=== PATIENT | female | born 1945 | race Caucasian/White ===

== ENCOUNTER 2018-07-21 08:02 | Day surgery (SDC) | payer MEDICARE, OTHER ==
[~2018-07-21 08:02] MED LIST: Cefuroxime 10 MG/ML SYRINGE EYERT SCH; Lidocaine 1% PF 2 ML SDV INJECT SCH; Pilocarpine 4% Ophth Soln 15 ML Bot EYERT SCH
[2018-07-21] MEDS: Polymyxin B/Trimethoprim 10 ML Bottle EYERT SCH ×3 (08:16→09:59)
[2018-07-21] MEDS: Brimonidine 0.2% Ophth Soln 5 ML Bottle EYERT SCH ×3 (08:19→09:59)
[2018-07-21] MEDS: Phenylephrine 2.5% Ophth Soln 2 ML Bot EYERT SCH ×5 (08:22→09:38)
[2018-07-21] MEDS: Tropicamide 1% Ophth Soln 15 ML Bottle EYERT SCH ×4 (08:25→09:05)
--- NOTE | 2018-07-21 08:45 | PCM.PREANE ---
Preanesthetic Assessment - Procedure Proposed Procedure: cataract right eye - Anesthesia/Transfusion/Family Hx Anesthesia History: Prior Anesthesia Without Reaction Family History of Anesthesia Reaction: No Transfusion History: Prior Transfusion Without Reaction - Review of Systems General: No Symptoms Pulmonary: No Symptoms Cardiovascular: No Symptoms Gastrointestinal: No Symptoms Neurological: No Symptoms Other: Reports: Diabetes, Thyroid Problems - Physical Assessment NPO Status Date: 07/20/18 NPO Status Time: 22:00 O2 Sat by Pulse Oximetry: 97 Respiratory Rate: 16 Vital Signs: Last Vital Signs Temp 98.8 F 07/21/18 08:05 Pulse 65 07/21/18 08:05 Resp 16 07/21/18 08:05 BP 142/73 H 07/21/18 08:05 Pulse Ox 97 07/21/18 08:05 Height: 5 ft 5 in Weight: 81.647 kg ASA Class: 3 Mental Status: Alert & Oriented x3 Airway Class: Mallampati = 1 Dentition: Reports: Normal Dentition Thyro-Mental Finger Breadths: 3 Mouth Opening Finger Breadths: 3 ROM/Head Extension: Full Lungs: Clear to Auscultation, Normal Respiratory Effort Cardiovascular: Regular Rate, Regular Rhythm - Allergies Allergies/Adverse Reactions: Allergies Allergy/AdvReac Type Severity Reaction Status Date / Time No Known Allergies Allergy Verified 07/20/18 14:33 - Blood Blood Available: No - Anesthesia Plan Beta Laly: Metoprolol Med Last Dose Date: 07/21/18 Med Last Dose Time: 06:00 - Acknowledgements Anesthesia Type Planned: MAC Pt an Appropriate Candidate for the Planned Anesthesia: Yes Alternatives and Risks of Anesthesia Discussed w Pt/Guardian: Yes Pt/Guardian Understands and Agrees with Anesthesia Plan: Yes PreAnesthesia Questionnaire Cardiovascular History: Reports: Heart Valve Replacement, High Cholesterol, Hypertension Respiratory History: Reports: None Gastrointestinal History: Reports: GERD Musculoskeletal History: Reports: Arthritis Endocrine/Metabolic History: Reports: Hypothyroidism - Past Surgical History Cardiovascular Surgical History: Reports: Valve Replacement Musculoskeletal Surgical History: Reports: Carpal Tunnel, Knee Replacement - SUBSTANCE USE Smoking Status *Q: Former Smoker Tobacco Use Within Last Twelve Months: No Second Hand Smoke Exposure: No Days Per Week of Alcohol Use: 0 Recreational Drug Use History: No - HOME MEDS Home Medications: Home Meds Aspirin [Ecotrin] 81 mg PO DAILY 07/20/18 [History] Cholecalciferol (Vitamin D3) [Vitamin D3] 1,000 unit PO DAILY 07/20/18 [History] Levothyroxine Sodium 88 mcg PO DAILY 07/20/18 [History] Linagliptin [Tradjenta] 5 mg PO DAILY 07/20/18 [History] Metoprolol Succinate 25 mg PO DAILY 07/20/18 [History] Vitamin E 400 mg PO DAILY 07/20/18 [History] amLODIPine Besylate [Amlodipine Besylate] 5 mg PO DAILY 07/20/18 [History] atorvaSTATin Calcium [Atorvastatin Calcium] 80 mg PO DAILY 07/20/18 [History] - CURRENT (IN HOUSE) MEDS Current Meds: Current Medications Brimonidine Tartrate (Alphagan 0.2% Oph Soln) 0 ml EYERT ASDIRECTED SANA Stop: 07/21/18 18:00 Last Admin: 07/21/18 08:19 Dose: 1 drop Cefuroxime Sodium (Zinacef) 0 mg EYERT ASDIRECTED SANA Stop: 07/21/18 18:00 Lidocaine HCl (Xylocaine-Mpf 1%) 0 ml INJECT ASDIRECTED SANA Stop: 07/21/18 18:00 Phenylephrine HCl (Arnulfo-Synephrine 2.5% Ophth Soln) 0 ml EYERT ASDIRECTED SANA Stop: 07/21/18 18:00 Last Admin: 07/21/18 08:30 Dose: 1 drop Pilocarpine HCl (Pilocar 4% Ophth Soln) 0 ml EYERT ASDIRECTED SANA Stop: 07/21/18 18:00 Polymyxin/Trimethoprim Sulfate (Polytrim Ophth Soln) 0 ml EYERT ASDIRECTED SANA Stop: 07/21/18 18:00 Last Admin: 07/21/18 08:16 Dose: 1 drop Tetracaine HCl (Tetracaine 0.5% Steri-Unit Marisol) 0 ml EYERT ASDIRECTED SANA Stop: 07/21/18 18:00 Tropicamide (Mydriacyl 1% Oph Soln) 0 ml EYERT ASDIRECTED SANA Stop: 07/21/18 18:00 Last Admin: 07/21/18 08:35 Dose: 1 drop
[2018-07-21] MEDS: Tetracaine HCl/PF 0.5% 4 ML Bottle EYERT SCH ×4 (09:19→09:48)
--- NOTE | 2018-07-21 10:05 | PCM48HPAN ---
Post Anesthesia Note - EVALUATION WITHIN 48HRS OF ANESTHETIC Vital Signs in Normal Range: Yes Patient Participated in Evaluation: Yes Respiratory Function Stable: Yes Airway Patent: Yes Cardiovascular Function Stable: Yes Hydration Status Stable: Yes Pain Control Satisfactory: Yes Nausea and Vomiting Control Satisfactory: Yes Mental Status Recovered: Yes Resp Rate: 16
== END 2018-07-21 10:13 | disposition home or self-care (01) ==
LOC: JD.SDS 08:02
PROVIDERS: ATTEND Ophthalmology
DX: E11.36 Type 2 diabetes mellitus with diabetic cataract (principal); H25.813 Combined forms of age-related cataract, bilateral; H43.813 Vitreous degeneration, bilateral; H16.223 Keratoconjunctivitis sicca, not specified as Sjogren's, bilateral; H02.831 Dermatochalasis of right upper eyelid; H02.834 Dermatochalasis of left upper eyelid; I11.9 Hypertensive heart disease without heart failure; E78.00 Pure hypercholesterolemia, unspecified; E03.9 Hypothyroidism, unspecified; Z87.891 Personal history of nicotine dependence; Z79.82 Long term (current) use of aspirin; Z79.84 Long term (current) use of oral hypoglycemic drugs; Z79.899 Other long term (current) drug therapy
CPT/HCPCS: 66984; A9270; C1780; J0697; J2001

== ENCOUNTER 2018-09-15 07:24 | Day surgery (SDC) | payer MEDICARE, OTHER ==
[~2018-09-15 07:24] MED LIST changes: +Cefuroxime 10 MG/ML SYRINGE EYELF SCH; -Cefuroxime 10 MG/ML SYRINGE EYERT SCH; -Lidocaine 1% PF 2 ML SDV INJECT SCH; -Pilocarpine 4% Ophth Soln 15 ML Bot EYERT SCH
[2018-09-15] MEDS: Polymyxin B/Trimethoprim 10 ML Bottle EYELF SCH ×4 (07:37→09:29)
[2018-09-15] MEDS: Brimonidine 0.2% Ophth Soln 5 ML Bottle EYELF SCH ×4 (07:42→09:29)
[2018-09-15] MEDS: Phenylephrine 2.5% Ophth Soln 2 ML Bot EYELF SCH ×5 (07:48→09:12)
--- NOTE | 2018-09-15 07:48 | PCM.PREANE ---
Preanesthetic Assessment - Anesthesia/Transfusion/Family Hx Anesthesia History: Prior Anesthesia Without Reaction Family History of Anesthesia Reaction: No Transfusion History: Prior Transfusion Without Reaction - Review of Systems General: No Symptoms Pulmonary: No Symptoms Cardiovascular: No Symptoms Gastrointestinal: No Symptoms Neurological: No Symptoms Other: Reports: None - Physical Assessment NPO Status Date: 09/14/18 NPO Status Time: 22:00 Pulse: 64 O2 Sat by Pulse Oximetry: 93 Respiratory Rate: 16 Blood Pressure: 155/72 Temperature: 97.6 C ASA Class: 2 Mental Status: Alert & Oriented x3 Airway Class: Mallampati = 1 Dentition: Reports: Normal Dentition Thyro-Mental Finger Breadths: 3 Mouth Opening Finger Breadths: 3 ROM/Head Extension: Full Lungs: Clear to Auscultation, Normal Respiratory Effort Cardiovascular: Regular Rate, Regular Rhythm, Murmurs - Allergies Allergies/Adverse Reactions: Allergies Allergy/AdvReac Type Severity Reaction Status Date / Time No Known Allergies Allergy Verified 09/14/18 14:55 - Anesthesia Plan Beta Laly: Metoprolol Med Last Dose Date: 09/15/18 Med Last Dose Time: 05:00 - Acknowledgements Anesthesia Type Planned: MAC Pt an Appropriate Candidate for the Planned Anesthesia: Yes Alternatives and Risks of Anesthesia Discussed w Pt/Guardian: Yes Pt/Guardian Understands and Agrees with Anesthesia Plan: Yes PreAnesthesia Questionnaire HEENT History: Reports: Cataract Cardiovascular History: Reports: Heart Valve Replacement (aortic vavle), High Cholesterol, Hypertension Respiratory History: Reports: None Gastrointestinal History: Reports: GERD Musculoskeletal History: Reports: Arthritis Endocrine/Metabolic History: Reports: Diabetes, Type II (pt does not check BS regularly), Hypothyroidism - Past Surgical History HEENT Surgical History: Reports: Tonsillectomy Cardiovascular Surgical History: Reports: Valve Replacement Female Surgical History: Reports: Tubal Ligation Musculoskeletal Surgical History: Reports: Carpal Tunnel, Knee Replacement ((L)) - SUBSTANCE USE Smoking Status *Q: Never Smoker - HOME MEDS Home Medications: Home Meds Aspirin [Ecotrin] 81 mg PO DAILY 07/20/18 [History] Cholecalciferol (Vitamin D3) [Vitamin D3] 1,000 unit PO DAILY 07/20/18 [History] Levothyroxine Sodium 88 mcg PO DAILY 07/20/18 [History] Linagliptin [Tradjenta] 5 mg PO DAILY 07/20/18 [History] Metoprolol Succinate 25 mg PO DAILY 07/20/18 [History] Vitamin E 400 mg PO DAILY 07/20/18 [History] amLODIPine Besylate [Amlodipine Besylate] 5 mg PO DAILY 07/20/18 [History] atorvaSTATin Calcium [Atorvastatin Calcium] 80 mg PO DAILY 07/20/18 [History] - CURRENT (IN HOUSE) MEDS Current Meds: Current Medications Brimonidine Tartrate (Alphagan 0.2% Ophth Soln) 0 ml EYELF ASDIRECTED SANA Stop: 09/15/18 18:00 Cefuroxime Sodium (Zinacef) 0 mg EYELF ASDIRECTED SANA Stop: 09/15/18 18:00 Lidocaine HCl (Xylocaine-Mpf 1%) 0 ml INJECT ASDIRECTED SANA Stop: 09/15/18 18:00 Phenylephrine HCl (Arnulfo-Synephrine 2.5% Ophth Soln) 0 ml EYELF ASDIRECTED SANA Stop: 09/15/18 18:00 Pilocarpine HCl (Pilocar 4% Ophth Soln) 0 ml EYELF ASDIRECTED SANA Stop: 09/15/18 18:00 Polymyxin/Trimethoprim Sulfate (Polytrim Ophth Soln) 0 ml EYELF ASDIRECTED SANA Stop: 09/15/18 18:00 Last Admin: 09/15/18 07:37 Dose: 1 drop Tetracaine HCl (Tetracaine 0.5% Steri-Unit Marisol) 0 ml EYELF ASDIRECTED SANA Stop: 09/15/18 18:00 Tropicamide (Mydriacyl 1% Ophth Soln) 0 ml EYELF ASDIRECTED SANA Stop: 09/18/18 18:00
[2018-09-15] MEDS: Tropicamide 1% Ophth Soln 15 ML Bottle EYELF SCH ×4 (07:58→08:42)
[2018-09-15] MEDS: Lidocaine 1% PF 2 ML SDV INJECT SCH ×2 (08:37→09:18)
[2018-09-15] MEDS: Tetracaine HCl/PF 0.5% 4 ML Bottle EYELF SCH ×3 (08:37→09:19)
[2018-09-15] MEDS: Pilocarpine 4% Ophth Soln 15 ML Bot EYELF SCH ×2 (08:38→09:29)
--- NOTE | 2018-09-15 09:41 | PCM48HPAN ---
Post Anesthesia Note - EVALUATION WITHIN 48HRS OF ANESTHETIC Vital Signs in Normal Range: Yes Patient Participated in Evaluation: Yes Respiratory Function Stable: Yes Airway Patent: Yes Cardiovascular Function Stable: Yes Hydration Status Stable: Yes Pain Control Satisfactory: Yes Nausea and Vomiting Control Satisfactory: Yes Mental Status Recovered: Yes
== END 2018-09-15 09:41 | disposition home or self-care (01) ==
LOC: JD.SDS 07:24
PROVIDERS: ATTEND Ophthalmology
DX: H25.812 Combined forms of age-related cataract, left eye (principal); E11.9 Type 2 diabetes mellitus without complications; I10 Essential (primary) hypertension; E78.00 Pure hypercholesterolemia, unspecified; Z96.1 Presence of intraocular lens; Z79.82 Long term (current) use of aspirin; Z79.84 Long term (current) use of oral hypoglycemic drugs; Z79.899 Other long term (current) drug therapy
CPT/HCPCS: 66984; A9270; C1780; J0697; J2001

== ENCOUNTER 2019-04-26 14:59 | Inpatient (IN) | payer MEDICARE, OTHER ==
[2019-05-03] MEDS ORDERED: Lidocaine 1%/Sod Bicarbonate in NS 8.4% 1 ML Syringe IDERM PRN (00:01)
[2019-05-03] MEDS ORDERED: Lactated Ringers 1,000 ML IV SCH (00:01)
[2019-05-03] MEDS ORDERED: Sodium Chloride 0.9% 10 ML Syringe FLUSH PRN (00:01)
[2019-05-03] MEDS ORDERED: Acetaminophen 325 MG Tab PO SCH (06:00)
[2019-05-03] MEDS ORDERED: Pregabalin 25 MG Cap PO SCH (06:00)
[2019-05-03] MEDS ORDERED: oxyCODONE ER 10 MG TAB.ER PO SCH (06:00)
[2019-05-03] MEDS ORDERED: Naloxone 0.4 MG/ML SDV IVPUSH PRN (07:10)
[2019-05-03] MEDS ORDERED: Ondansetron 4 MG/2 ML SDV IVPUSH PRN (07:10)
[2019-05-03] MEDS ORDERED: Magnesium Hydroxide 400 MG/5 ML Susp 30 ML Cup PO PRN (07:10)
[2019-05-03] MEDS ORDERED: Bisacodyl 5 MG Tab PO PRN (07:10)
[2019-05-03] MEDS ORDERED: Morphine 2 MG/ML Syringe IVPUSH PRN (07:10)
[2019-05-03] MEDS ORDERED: Sennosides 8.6 MG Tab PO PRN (07:10)
[2019-05-03] MEDS ORDERED: Ropivacaine 0.5% 5 MG/ML 30 ML SDV ONE (07:44)
[2019-05-03] MEDS ORDERED: ceFAZolin 1 GM Vial ONE (11:42)
[2019-05-03] MEDS ORDERED: Vancomycin 1.5 GM in Sodium Chloride 0.9% 500 ML IV SCH (11:45)
--- NOTE | 2019-05-03 12:01 | PCM.CONS ---
H&P History of Present Illness - General Date of Service: 05/03/19 Admit Problem/Dx: Admission Diagnosis/Problem Admission Diagnosis/Problem Osteoarthritis of knee Source of Information: Patient, Provider, RN, RN Notes Reviewed History Limitations: Reports: No Limitations - History of Present Illness Initial Comments - Free Text/Narative: Sangeeta Allen is a 73 yo [address] patient of Dr. Alberto who is post-operative day 0 of right TKA. Hospital medicine was consulted for post-operative medical care of the following listed medical conditions. At this time she is resting comfortably in bed. Pain is controlled. She denies any chest pain, shortness of breath, palpitations, nausea, or vomiting. She carries a history of: Positive MRSA, CKD stage III, HTN, Bioprosthetic aortic valve replacement on 11/03/15, Moderate tricuspid valve regurgitation, HLD, Type II DM, Hypothyroidism, Murmur , GERD. She was never a smoker. She is a full code. Her primary care provider is Veronique Henley PA-C. Right Knee Pain Score (Numeric/FACES): 0 - Related Data Allergies/Adverse Reactions: Allergies Allergy/AdvReac Type Severity Reaction Status Date / Time No Known Allergies Allergy Verified 04/28/19 15:11 Home Medications: Home Meds Aspirin [Ecotrin EC] 81 mg PO DAILY 07/20/18 [History] Levothyroxine Sodium 88 mcg PO DAILY 07/20/18 [History] Linagliptin [Tradjenta] 5 mg PO DAILY 07/20/18 [History] Metoprolol Succinate 25 mg PO DAILY 07/20/18 [History] Vitamin E 400 mg PO DAILY 07/20/18 [History] amLODIPine Besylate [Amlodipine Besylate] 5 mg PO DAILY 07/20/18 [History] atorvaSTATin Calcium [Atorvastatin Calcium] 80 mg PO DAILY 07/20/18 [History] Ascorbic Acid [Vitamin C] 250 mg PO DAILY 04/28/19 [History] Benazepril [Lotensin] 5 mg PO DAILY 04/28/19 [History] Cholecalciferol (Vitamin D3) [Vitamin D3] 5,000 unit PO DAILY 04/28/19 [History] Magnesium Oxide [Magnesium] 400 mg PO DAILY 04/28/19 [History] Past Medical History HEENT History: Reports: Cataract, Impaired Vision, Other (See Below) Other HEENT History: WEARS GLASSES Cardiovascular History: Reports: Afib, Heart Murmur, Heart Valve Replacement, High Cholesterol, Hypertension, Other (See Below) Respiratory History: Reports: None Gastrointestinal History: Reports: GERD Genitourinary History: Reports: Other (See Below) Other Genitourinary History: CKD III Musculoskeletal History: Reports: Arthritis, Other (See Below) Other Musculoskeletal History: RIGHT KNEE PAIN Neurological History: Reports: None Psychiatric History: Reports: None Endocrine/Metabolic History: Reports: Diabetes, Type II, Hypothyroidism Hematologic History: Reports: None Immunologic History: Reports: None Oncologic (Cancer) History: Reports: None Dermatologic History: Reports: None - Past Surgical History Head Surgeries/Procedures: Reports: None HEENT Surgical History: Reports: Cataract Surgery, Tonsillectomy Cardiovascular Surgical History: Reports: Valve Replacement Respiratory Surgical History: Reports: None GI Surgical History: Reports: Colonoscopy Female Surgical History: Reports: Tubal Ligation Endocrine Surgical History: Reports: None Neurological Surgical History: Reports: None Musculoskeletal Surgical History: Reports: Carpal Tunnel, Knee Replacement Oncologic Surgical History: Reports: None Dermatological Surgical History: Reports: None Social & Family History - Tobacco Use Smoking Status *Q: Never Smoker - Caffeine Use Caffeine Use: Reports: Soda - Recreational Drug Use Recreational Drug Use: No Drug Use in Last 12 Months: No H&P Review of Systems - Review of Systems: Review Of Systems: See Below General: Reports: No Symptoms. Denies: Fever, Chills HEENT: Reports: No Symptoms. Denies: Headaches, Sore Throat Pulmonary: Reports: No Symptoms. Denies: Shortness of Breath, Wheezing, Cough, Sputum Cardiovascular: Reports: No Symptoms. Denies: Chest Pain, Palpitations Gastrointestinal: Reports: No Symptoms. Denies: Abdominal Pain, Constipation, Nausea, Vomiting Genitourinary: Reports: No Symptoms. Denies: Pain Musculoskeletal: Reports: Leg Pain Skin: Reports: No Symptoms. Denies: Cyanosis Psychiatric: Reports: No Symptoms. Denies: Confusion Neurological: Reports: No Symptoms Hematologic/Lymphatic: Reports: No Symptoms Immunologic: Reports: No Symptoms Exam - Exam Exam: See Below - Vital Signs Vital Signs: Last Vital Signs Temp 98.1 F 05/03/19 11:05 Pulse 66 05/03/19 11:05 Resp 16 05/03/19 11:05 BP 131/76 05/03/19 11:05 Pulse Ox 96 05/03/19 11:05 Weight: 192 lb - Exam Quality Assessment: DVT Prophylaxis General: Alert, Oriented, Cooperative. No: Mild Distress HEENT: Conjunctiva Clear, EACs Clear, EOMI, Hearing Intact, Mucosa Moist & [place] , Nares Patent, Posterior Pharynx Clear, PERRLA Neck: Supple, Trachea Midline Lungs: Clear to Auscultation, Normal Respiratory Effort Cardiovascular: Regular Rate, Regular Rhythm, Systolic Murmur GI/Abdominal Exam: Normal Bowel Sounds, Soft, Non-Tender, No Distention, No Abnormal Bruit (Female) Exam: Deferred Rectal (Female) Exam: Deferred Back Exam: Normal Inspection, Full Range of Motion Extremities: No Pedal Edema, Normal Capillary Refill, Leg Pain, Limited Range of Motion, Other Peripheral Pulses: 2+: Radial (L), Radial (R), Dorsalis Pedis (L), Dorsalis Pedis (R) Skin: Warm, Dry, Intact Neurological: Cranial Nerves Intact (Grossly ) Neuro Extensive - Mental Status: Alert, Oriented x3, Normal Mood/Affect - Patient Data Lab Results Last 24 hrs: Laboratory Results - last 24 hr 05/03/19 Range/Units 11:34 POC Glucose 107 (83-110) mg/dL Consult PN Assessment/Plan POD#: 0 Procedures: Procedures ASSAY OF BLOOD/URIC ACID (05/20/18) ASSAY OF PARATHORMONE (05/20/18) ASSAY OF PROTEIN URINE (05/20/18) ASSAY OF URINE CREATININE (05/20/18) CATARACT SURG W/IOL 1 STAGE (09/15/18) COMPLETE CBC W/AUTO DIFF WBC (05/20/18) EXTREMITY STUDY (08/17/18) RENAL FUNCTION PANEL (05/20/18) URINALYSIS AUTO W/SCOPE (05/20/18) US EXAM ABDO BACK WALL NUNN (05/25/18) VASCULAR STUDY (05/25/18) VITAMIN D 25 HYDROXY (05/20/18) X-RAY EXAM OF KNEE 3 (08/17/18) (1) S/P total knee arthroplasty SNOMED Code(s): 3929565746034, 099589102, 6363121187503 Code(s): Z96.659 - PRESENCE OF UNSPECIFIED ARTIFICIAL KNEE JOINT Priority: High Current Visit: Yes Qualifiers: Laterality: right Qualified Code(s): Z96.651 - Presence of right artificial knee joint (2) Osteoarthritis SNOMED Code(s): 389886541 Code(s): M19.90 - UNSPECIFIED OSTEOARTHRITIS, UNSPECIFIED SITE Priority: High Current Visit: Yes Qualifiers: Osteoarthritis location: knee Osteoarthritis type: primary Laterality: right Qualified Code(s): M17.11 - Unilateral primary osteoarthritis, right knee (3) Positive result for methicillin resistant Staphylococcus aureus (MRSA) screening SNOMED Code(s): 518344757 Code(s): Z22.322 - CARRIER OR SUSPECTED CARRIER OF METHICILLIN RESIS STAPH Current Visit: Yes (4) CKD (chronic kidney disease) stage 3, GFR 30-59 ml/min SNOMED Code(s): 299346121 Code(s): N18.3 - CHRONIC KIDNEY DISEASE, STAGE 3 (MODERATE) Priority: Medium Current Visit: Yes (5) HTN (hypertension) SNOMED Code(s): 54711092 Code(s): I10 - ESSENTIAL (PRIMARY) HYPERTENSION Priority: Medium Current Visit: No Qualifiers: Hypertension type: unspecified Qualified Code(s): I10 - Essential (primary ) hypertension (6) S/P aortic valve replacement with bioprosthetic valve SNOMED Code(s): 0524727506970, 343163749, 315035654, 524755793, 4928565145611 Code(s): Z95.3 - PRESENCE OF XENOGENIC HEART VALVE Priority: Medium Current Visit: No (7) Tricuspid valve regurgitation SNOMED Code(s): 162375842 Code(s): I07.1 - RHEUMATIC TRICUSPID INSUFFICIENCY Priority: Medium Current Visit: No Qualifiers: Cardiac valve disease etiology: etiology unspecified Qualified Code(s): I07.1 - Rheumatic tricuspid insufficiency (8) HLD (hyperlipidemia) SNOMED Code(s): 41278222 Code(s): E78.5 - HYPERLIPIDEMIA, UNSPECIFIED Priority: Low Current Visit : No Qualifiers: Hyperlipidemia type: unspecified Qualified Code(s): E78.5 - Hyperlipidemia , unspecified (9) Type II diabetes mellitus SNOMED Code(s): 99641823 Code(s): E11.9 - TYPE 2 DIABETES MELLITUS WITHOUT COMPLICATIONS Priority: Medium Current Visit: No Qualifiers: Diabetes mellitus intermediate school teacher insulin use: unspecified intermediate school teacher insulin use status Diabetes mellitus complication status: with other specified complication Qualified Code(s): E11.69 - Type 2 diabetes mellitus with other specified complication (10) Hypothyroidism SNOMED Code(s): 18768147 Code(s): E03.9 - HYPOTHYROIDISM, UNSPECIFIED Priority: Low Current Visit : No Qualifiers: Hypothyroidism type: unspecified Qualified Code(s): E03.9 - Hypothyroidism , unspecified (11) Cardiac murmur SNOMED Code(s): 74274590 Code(s): R01.1 - CARDIAC MURMUR, UNSPECIFIED Priority: Low Current Visit : No Problem List Initiated/Reviewed/Updated: Yes Plan: I/P: Acute: S/P right total knee arthroplasty - post-operative day 0 -DVT prophylaxis and pain management per primary care team -PT/OT -IS/RT -Monitor oxygen saturation -Titrate oxygen as needed -Home medications reviewed -Vital signs stable -Monitor labs -Pre-operative Hgb was 14.3 -Pre-operative GFR was 49 -Pre-operative A1C wsa 6.4% -Pre-operative BUN was 24 -Pre-operative Creatinine was 1.1 -Pre-operative 12-lead EKG shows Sinus rhythm at 62 BPM. LVH pattern. Non- specific ST segment abnormalities. Osteoarthritis of right knee -Pain management per primary care team Chronic: Positive MRSA CKD stage III HTN Bioprosthetic aortic valve replacement on 11/03/15 Moderate tricuspid valve regurgitation HLD Type II DM Hypothyroidism Murmur GERD Plan: Telemetry Contact precautions CM for discharge planning GI prophylaxis Home medications as indicated Other orders as listed above Routine AM labs She is a full code. Her PCP is Veronique Henley PA-C Thank you for allowing us to participate in the care of this patient!! Requesting Provider: Dr. Alberto Date Consult Requested: 05/03/19 Patient History Reviewed: Yes Admission H&P Reviewed: Yes
[2019-05-03] MEDS ORDERED: Sodium Chloride 0.9% 1,000 ML IV SCH (12:45)
--- NOTE | 2019-05-03 12:50 | PCM.PREANE ---
Preanesthetic Assessment - Anesthesia/Transfusion/Family Hx Anesthesia History: Prior Anesthesia Without Reaction Transfusion History: Prior Transfusion Without Reaction - Review of Systems General: No Symptoms Pulmonary: No Symptoms Cardiovascular: No Symptoms Gastrointestinal: No Symptoms Neurological: No Symptoms Other: Reports: None - Physical Assessment NPO Status Date: 05/02/19 NPO Status Time: 20:00 Vital Signs: Last Vital Signs Temp 98.1 F 05/03/19 11:05 Pulse 66 05/03/19 11:05 Resp 16 05/03/19 11:05 BP 131/76 05/03/19 11:05 Pulse Ox 96 05/03/19 11:05 Height: 1.65 m Weight: 87.09 kg ASA Class: 3 Mental Status: Alert & Oriented x3 Airway Class: Mallampati = 2 Dentition: Reports: Normal Dentition Thyro-Mental Finger Breadths: 3 Mouth Opening Finger Breadths: 3 Lungs: Clear to Auscultation Cardiovascular: Regular Rate, Regular Rhythm, Murmurs - Lab Values: Laboratory Last Values POC Glucose 107 mg/dL (83-110) 05/03/19 11:34 MRSA (PCR) Positive H 04/21/19 14:53 - Allergies Allergies/Adverse Reactions: Allergies Allergy/AdvReac Type Severity Reaction Status Date / Time No Known Allergies Allergy Verified 04/28/19 15:11 - Anesthesia Plan Beta Laly: Metoprolol Med Last Dose Date: 05/03/19 Med Last Dose Time: 06:00 - Acknowledgements Anesthesia Type Planned: Spinal Pt an Appropriate Candidate for the Planned Anesthesia: Yes Alternatives and Risks of Anesthesia Discussed w Pt/Guardian: Yes Pt/Guardian Understands and Agrees with Anesthesia Plan: Yes PreAnesthesia Questionnaire HEENT History: Reports: Cataract, Impaired Vision, Other (See Below) Other HEENT History: WEARS GLASSES Cardiovascular History: Reports: Afib, Heart Murmur, Heart Valve Replacement, High Cholesterol, Hypertension, Other (See Below) Gastrointestinal History: Reports: GERD Genitourinary History: Reports: Other (See Below) Other Genitourinary History: CKD III Musculoskeletal History: Reports: Arthritis, Other (See Below) Other Musculoskeletal History: RIGHT KNEE PAIN Endocrine/Metabolic History: Reports: Diabetes, Type II, Hypothyroidism - Past Surgical History Head Surgeries/Procedures: Reports: None HEENT Surgical History: Reports: Cataract Surgery, Tonsillectomy Cardiovascular Surgical History: Reports: Valve Replacement Respiratory Surgical History: Reports: None GI Surgical History: Reports: Colonoscopy Female Surgical History: Reports: Tubal Ligation Endocrine Surgical History: Reports: None Neurological Surgical History: Reports: None Musculoskeletal Surgical History: Reports: Carpal Tunnel, Knee Replacement Oncologic Surgical History: Reports: None Dermatological Surgical History: Reports: None - SUBSTANCE USE Smoking Status *Q: Never Smoker Recreational Drug Use History: No - HOME MEDS Home Medications: Home Meds Aspirin [Ecotrin EC] 81 mg PO DAILY 07/20/18 [History] Levothyroxine Sodium 88 mcg PO DAILY 07/20/18 [History] Linagliptin [Tradjenta] 5 mg PO DAILY 07/20/18 [History] Metoprolol Succinate 25 mg PO DAILY 07/20/18 [History] Vitamin E 400 mg PO DAILY 07/20/18 [History] amLODIPine Besylate [Amlodipine Besylate] 5 mg PO DAILY 07/20/18 [History] atorvaSTATin Calcium [Atorvastatin Calcium] 80 mg PO DAILY 07/20/18 [History] Ascorbic Acid [Vitamin C] 250 mg PO DAILY 04/28/19 [History] Benazepril [Lotensin] 5 mg PO DAILY 04/28/19 [History] Cholecalciferol (Vitamin D3) [Vitamin D3] 5,000 unit PO DAILY 04/28/19 [History] Magnesium Oxide [Magnesium] 400 mg PO DAILY 04/28/19 [History] - CURRENT (IN HOUSE) MEDS Current Meds: Current Medications Hydrocodone Bitart/Acetaminophen ([place] 325-5 Mg) 1 - 2 tab PO Q4H PRN PRN Reason: Pain Bisacodyl (Dulcolax) 5 mg PO DAILY PRN PRN Reason: Constipation Morphine Sulfate 8 mg/Epinephrine HCl 0.3 mg/Cefuroxime Sodium 750 mg/Ketorolac Tromethamine 30 mg/Sodium Chloride 27.9 ml 0 mg .XX ASDIRECTED PRN PRN Reason: SCIP Famotidine (Pepcid) 20 mg PO Q12H SANA Lactated Ringer's (Ringers, Lactated) 1,000 mls @ 125 mls/hr IV ASDIRECTED SANA Stop: 05/03/19 23:00 Last Admin: 05/03/19 11:34 Dose: 125 mls/hr Vancomycin HCl 1.5 gm/ Sodium (Chloride) 500 mls @ 250 mls/hr IV ONETIME SANA Last Admin: 05/03/19 12:05 Dose: 250 mls/hr Lidocaine/Sodium Bicarbonate (Buffered Lidocaine 1% In Ns 8.4%) 0.25 ml IDERM ONETIME PRN PRN Reason: Prior to IV Start Stop: 05/03/19 18:00 Last Admin: 05/03/19 11:34 Dose: 0.25 ml Magnesium Hydroxide (Milk Of Magnesia) 30 ml PO BID PRN PRN Reason: Constipation Morphine Sulfate (Morphine) 2 mg IVPUSH Q2H PRN PRN Reason: Breakthrough Pain Naloxone HCl (Narcan) 0.1 mg IVPUSH Q5M PRN PRN Reason: Oversedation Ondansetron HCl (Zofran) 4 mg IVPUSH Q6H PRN PRN Reason: Nausea/Vomiting Senna (Senna) 8.6 mg PO BID PRN PRN Reason: Constipation Sodium Chloride (Saline Flush) 10 ml FLUSH ASDIRECTED PRN PRN Reason: Keep Vein Open Stop: 05/03/19 18:00 Discontinued Medications Bupivacaine HCl (Sensorcaine-Mpf 0.25%) Confirm Administered Dose 30 ml .ROUTE .STK-MED ONE Stop: 05/03/19 11:43 Cefazolin Sodium (Ancef) Confirm Administered Dose 2 gm .ROUTE .STK-MED ONE Stop: 05/03/19 11:43 Iodine (Iodine 2% Mild Tincture) Confirm Administered Dose 30 ml .ROUTE .STK- MED ONE Stop: 05/03/19 11:43 Ropivacaine (Naropin 0.5%) Confirm Administered Dose 30 ml .ROUTE .STK-MED ONE Stop: 05/03/19 07:45 Tranexamic Acid (Cyklokapron) Confirm Administered Dose 1,000 mg .ROUTE .STK- MED ONE Stop: 05/03/19 11:43 Vancomycin HCl (Vancomycin) Confirm Administered Dose 1 gm .ROUTE .STK-MED ONE Stop: 05/03/19 11:43
[2019-05-03] MEDS ORDERED: Midazolam 1 MG/ML 2 ML SDV ONE (13:31)
[2019-05-03] MEDS ORDERED: Propofol 200 MG/20 ML SDV ONE ×2 (13:32→14:34)
[2019-05-03] MEDS: Bupivacaine 0.25% 10 ML SDV ONE ×2 (14:05→14:48)
[2019-05-03] MEDS: Morphine 8 MG, EPINEPHrine 0.3 MG, Cefuroxime 750 MG, Ketorolac 30 MG, Sodium Chloride ... PRN ×10 (14:06→14:49)
[2019-05-03] MEDS: Iodine/Sodium Iodide 2% Tincture 30 ML Bottle ONE ×2 (14:06→14:45)
[2019-05-03] MEDS: ceFAZolin 1 GM Vial ONE ×2 (14:06→14:47)
[2019-05-03] MEDS: Vancomycin 1 GM SDV ONE ×2 (14:07→14:55)
[2019-05-03] MEDS ORDERED: ePHEDrine/Normal Saline 25 MG/5 ML Syringe ONE (14:11)
[2019-05-03] MEDS ORDERED: Lidocaine 1% 2 ML ONE (14:14)
--- NOTE | 2019-05-03 15:40 | PCM.POSTAN ---
POST ANESTHESIA ASSESSMENT - MENTAL STATUS Mental Status: Alert, Oriented - VITAL SIGNS Vital Signs: Last Vital Signs Temp 98.1 F 05/03/19 15:26 Pulse 71 05/03/19 15:30 Resp 14 05/03/19 15:30 BP 106/63 05/03/19 15:30 Pulse Ox 98 05/03/19 15:30 - RESPIRATORY Respiratory Status: Respiratory Rate WNL, Airway Patent, O2 Saturation Stable, Supplemental Oxygen - CARDIOVASCULAR CV Status: Pulse Rate WNL, Blood Pressure Stable - GASTROINTESTINAL GI Status: No Symptoms - PAIN Pain Score: 0 (post SAB) - POST OP HYDRATION Hydration Status: Adequate & Stable
--- NOTE | 2019-05-03 16:06 | PCM.PRNOTE ---
- Free Text/Narrative Note: Postoperative regional pain control requested by surgeon. Pre-op Dx: Rt knee osteoarthritis. Post-op Rx: Total Rt knee arthroplasty. Procedure: Rt Adductor canal block with U/S guidance Requesting physician: Dr. Juan Jose Hutchinson Risks and benefits discussed with the patient preoperatively including infection , bleeding, incomplete or failed block, possible nerve damage, local anesthetic toxicity. Permit signed. Patient after spinal anesthesia post surgery in PACU, stable , alert and awake. Right mid-thigh was prepped with Chloraprep x 1 and allowed to dry. Under aseptic technique, the right femoral artery and sartorius muscle were identified under ultrasound prior to needle insertion. 4" Stimuplex needle #[id number] was inserted under US guidance. Under direct visualization of needle tip the injection of 0.5% Ropivacaine with 1:200k epinephrine, total of 30 mls in divided doses, maintaining negative aspiration was completed without problems. No local anesthetic toxicity was noted. Patient is awake, stable and tolerated the procedure well. Time: 15:45 - 15:53 Date: 05/03/2019 Alfie Bray CRNA Please see attached U/S pictures.
[2019-05-03] MEDS: Famotidine 20 MG Tab PO SCH ×3 (17:20→18:28)
[2019-05-03] MEDS: Acetaminophen/HYDROcodone 325-5 MG Tab PO PRN ×2 (17:27→21:42)
[2019-05-03] MEDS: Insulin Lispro 100 Units/ML 3 ML Vial SUBCUT SCH ×2 (17:37→21:45)
[2019-05-03] MEDS: ceFAZolin 2 GM in Premix Bag 1 BAG IV SCH ×2 (21:46→22:11)
[2019-05-04] MEDS: Acetaminophen/HYDROcodone 325-5 MG Tab PO PRN ×4 (01:37→17:37)
[2019-05-04] MEDS ORDERED: Levothyroxine 88 MCG Tab PO SCH (06:00)
[2019-05-04] MEDS: Famotidine 20 MG Tab PO SCH (06:25)
[2019-05-04] MEDS: Insulin Lispro 100 Units/ML 3 ML Vial SUBCUT SCH ×3 (06:27→19:01)
[2019-05-04] MEDS: ceFAZolin 2 GM in Premix Bag 1 BAG IV SCH ×2 (06:27→14:25)
--- NOTE | 2019-05-04 07:11 | PCM.CONSN ---
- General Info Date of Service: 05/04/19 Admission Dx/Problem (Free Text): Admission Diagnosis/Problem Admission Diagnosis/Problem Osteoarthritis of knee Functional Status: Reports: Pain Controlled, Tolerating Diet, Ambulating, Urinating, New Symptoms, Incentive Spirometry - Review of Systems General: Reports: No Symptoms. Denies: Fever, Weakness HEENT: Reports: No Symptoms. Denies: Headaches, Sore Throat Pulmonary: Reports: No Symptoms. Denies: Shortness of Breath, Pleuritic Chest Pain, Cough, Sputum, Wheezing Cardiovascular: Reports: No Symptoms. Denies: Chest Pain, Palpitations Gastrointestinal: Reports: No Symptoms. Denies: Abdominal Pain, Constipation, Diarrhea, Nausea, Vomiting Genitourinary: Reports: No Symptoms. Denies: Pain Musculoskeletal: Reports: Leg Pain (right ) Skin: Reports: No Symptoms. Denies: Cyanosis Neurological: Reports: No Symptoms. Denies: Confusion Psychiatric: Reports: No Symptoms - Patient Data Vitals - Most Recent: Last Vital Signs Temp 98.4 F 05/04/19 06:24 Pulse 64 05/04/19 06:24 Resp 20 05/04/19 06:24 BP 123/62 05/04/19 06:24 Pulse Ox 92 L 05/04/19 06:24 Weight - Most Recent: 198 lb 12.8 oz I&O - Last 24 Hours: Intake & Output 05/03/19 05/04/19 05/04/19 22:59 06:59 14:59 Intake Total 145 550 Output Total 600 Balance 145 -50 Lab Results Last 24 Hours: Laboratory Results - last 24 hr 05/03/19 05/03/19 05/03/19 Range/Units 11:34 17:26 21:31 WBC (3.98-10.04) K/mm3 RBC (3.98-5.22) M/mm3 Hgb (11.2-15.7) gm/dl Hct (34.1-44.9) % MCV (79.4-94.8) fl MCH (25.6-32.2) pg MCHC (32.2-35.5) g/dl RDW Std Deviation (36.4-46.3) fL Plt Count (182-369) K/mm3 MPV (9.4-12.3) fl Sodium (136-145) mEq/L Potassium (3.5-5.1) mEq/L Chloride (98-107) mEq/L Carbon Dioxide (21-32) mEq/L Anion Gap (5-15) BUN (7-18) mg/dL Creatinine (0.55-1.02) mg/dL Est Cr Clr Drug Dosing mL/min Estimated GFR (MDRD) (>60) mL/min BUN/Creatinine Ratio (14-18) Glucose (83-115) mg/dL POC Glucose 107 164 H 139 H (83-110) mg/dL Calcium (8.5-10.1) mg/dL Total Bilirubin (0.2-1.0) mg/dL AST (15-37) U/L ALT (14-59) U/L Alkaline Phosphatase (46-116) U/L Total Protein (6.4-8.2) g/dl Albumin (3.4-5.0) g/dl Globulin gm/dL Albumin/Globulin Ratio (1-2) 05/04/19 05/04/19 05/04/19 Range/Units 05:21 05:21 06:22 WBC 8.33 (3.98-10.04) K/mm3 RBC 4.32 (3.98-5.22) M/mm3 Hgb 12.2 D (11.2-15.7) gm/dl Hct 39.3 (34.1-44.9) % MCV 91.0 (79.4-94.8) fl MCH 28.2 (25.6-32.2) pg MCHC 31.0 L (32.2-35.5) g/dl RDW Std Deviation 46.7 H (36.4-46.3) fL Plt Count 206 (182-369) K/mm3 MPV 9.8 (9.4-12.3) fl Sodium 138 (136-145) mEq/L Potassium 5.0 (3.5-5.1) mEq/L Chloride 106 (98-107) mEq/L Carbon Dioxide 22 (21-32) mEq/L Anion Gap 15.0 (5-15) BUN 21 H (7-18) mg/dL Creatinine 1.3 H (0.55-1.02) mg/dL Est Cr Clr Drug Dosing 34.68 mL/min Estimated GFR (MDRD) 40 (>60) mL/min BUN/Creatinine Ratio 16.2 (14-18) Glucose 129 H (83-115) mg/dL POC Glucose 116 H (83-110) mg/dL Calcium 8.6 (8.5-10.1) mg/dL Total Bilirubin 0.5 (0.2-1.0) mg/dL AST 24 (15-37) U/L ALT 22 (14-59) U/L Alkaline Phosphatase 79 (46-116) U/L Total Protein 6.8 (6.4-8.2) g/dl Albumin 3.4 (3.4-5.0) g/dl Globulin 3.4 gm/dL Albumin/Globulin Ratio 1.0 (1-2) Med Orders - Current: Current Medications Hydrocodone Bitart/Acetaminophen ([place] 325-5 Mg) 1 - 2 tab PO Q4H PRN PRN Reason: Pain Last Admin: 05/04/19 06:26 Dose: 2 tab Amlodipine Besylate (Norvasc) 5 mg PO DAILY [facility] Aspirin (Ecotrin) 325 mg PO BID [facility] Benazepril HCl (Lotensin) 5 mg PO DAILY [facility] Bisacodyl (Dulcolax) 5 mg PO DAILY PRN PRN Reason: Constipation Cholecalciferol (Vitamin D3) 5,000 unit PO DAILY [facility] Famotidine (Pepcid) 20 mg PO Q12H [facility] Last Admin: 05/04/19 06:25 Dose: 20 mg Cefazolin Sodium/Dextrose 2 gm (/ Premix) 50 mls @ 100 mls/hr IV Q8H [facility] Stop: 05/04/19 15:29 Last Admin: 05/04/19 06:27 Dose: 100 mls/hr Insulin Human Lispro (Humalog) 0 unit SUBCUT QIDACANDBED [facility]; Protocol Last Admin: 05/04/19 06:27 Dose: Not Given Levothyroxine Sodium (Synthroid) 88 mcg PO ACBREAKFAST [facility] Last Admin: 05/04/19 06:25 Dose: 88 mcg Magnesium Hydroxide (Milk Of Magnesia) 30 ml PO BID PRN PRN Reason: Constipation Magnesium Oxide (Magnesium Oxide) 400 mg PO DAILY [facility] Metoprolol Succinate (Toprol Xl) 25 mg PO DAILY [facility] Morphine Sulfate (Morphine) 2 mg IVPUSH Q2H PRN PRN Reason: Breakthrough Pain Naloxone HCl (Narcan) 0.1 mg IVPUSH Q5M PRN PRN Reason: Oversedation Ondansetron HCl (Zofran) 4 mg IVPUSH Q6H PRN PRN Reason: Nausea/Vomiting Rosuvastatin Calcium (Crestor) 20 mg PO DAILY SANA Senna (Senna) 8.6 mg PO BID PRN PRN Reason: Constipation Discontinued Medications Bupivacaine HCl (Sensorcaine-Mpf 0.25%) Confirm Administered Dose 30 ml .ROUTE .STK-MED ONE Stop: 05/03/19 11:43 Last Admin: 05/03/19 14:48 Dose: 30 ml Cefazolin Sodium (Ancef) Confirm Administered Dose 2 gm .ROUTE .STK-MED ONE Stop: 05/03/19 11:43 Cefazolin Sodium (Ancef) Confirm Administered Dose 2 gm .ROUTE .STK-MED ONE Stop: 05/03/19 13:17 Last Admin: 05/03/19 14:47 Dose: 2 gm Morphine Sulfate 8 mg/Epinephrine HCl 0.3 mg/Cefuroxime Sodium 750 mg/Ketorolac Tromethamine 30 mg/Sodium Chloride 27.9 ml 0 mg .XX ASDIRECTED PRN PRN Reason: SCIP Last Admin: 05/03/19 14:49 Dose: 788.3 mg Ephedrine Sulfate (Ephedrine In Ns) Confirm Administered Dose 25 mg .ROUTE .STK- MED ONE Stop: 05/03/19 14:12 Lactated Ringer's (Ringers, Lactated) 1,000 mls @ 125 mls/hr IV ASDIRECTED [facility] Stop: 05/03/19 23:00 Last Admin: 05/03/19 11:34 Dose: 125 mls/hr Vancomycin HCl 1.5 gm/ Sodium (Chloride) 500 mls @ 250 mls/hr IV ONETIME SANA Last Admin: 05/03/19 12:05 Dose: 250 mls/hr Sodium Chloride (Normal Saline) 1,000 mls @ 125 mls/hr IV ASDIRECTED [facility] Stop: 05/03/19 23:00 Last Admin: 05/03/19 12:45 Dose: 125 mls/hr Lidocaine HCl (Xylocaine-Mpf 1%) Confirm Administered Dose 2 mls @ as directed .ROUTE .STK-MED ONE Stop: 05/03/19 14:15 Iodine (Iodine 2% Mild Tincture) Confirm Administered Dose 30 ml .ROUTE .STK- MED ONE Stop: 05/03/19 11:43 Last Admin: 05/03/19 14:45 Dose: 18 ml Lidocaine/Sodium Bicarbonate (Buffered Lidocaine 1% In Ns 8.4%) 0.25 ml IDERM ONETIME PRN PRN Reason: Prior to IV Start Stop: 05/03/19 18:00 Last Admin: 05/03/19 11:34 Dose: 0.25 ml Midazolam HCl (Versed 1 Mg/Ml) Confirm Administered Dose 2 mg .ROUTE .STK-MED ONE Stop: 05/03/19 13:32 Propofol (Diprivan 20 Ml) Confirm Administered Dose 400 mg .ROUTE .STK-MED ONE Stop: 05/03/19 13:33 Propofol (Diprivan 20 Ml) Confirm Administered Dose 200 mg .ROUTE .STK-MED ONE Stop: 05/03/19 14:35 Ropivacaine (Naropin 0.5%) Confirm Administered Dose 30 ml .ROUTE .STK-MED ONE Stop: 05/03/19 07:45 Sodium Chloride (Saline Flush) 10 ml FLUSH ASDIRECTED PRN PRN Reason: Keep Vein Open Stop: 05/03/19 18:00 Tranexamic Acid (Cyklokapron) Confirm Administered Dose 1,000 mg .ROUTE .STK- MED ONE Stop: 05/03/19 11:43 Last Admin: 05/03/19 14:58 Dose: 1,000 mg Vancomycin HCl (Vancomycin) Confirm Administered Dose 1 gm .ROUTE .STK-MED ONE Stop: 05/03/19 11:43 Last Admin: 05/03/19 14:55 Dose: 1 gm - Exam Quality Assessment: DVT Prophylaxis General: Alert, Oriented, Cooperative, No Acute Distress HEENT: Pupils Equal, Pupils Reactive, EOMI, Mucous Membr. Moist/[place] Neck: Supple, Trachea Midline Lungs: Clear to Auscultation, Normal Respiratory Effort Cardiovascular: Regular Rate, Regular Rhythm, Murmurs GI/Abdominal Exam: Normal Bowel Sounds, Soft, Non-Tender, No Distention, No Abnormal Bruit (Female) Exam: Deferred Back Exam: Normal Inspection, Full Range of Motion Extremities: No Pedal Edema, Normal Capillary Refill, Leg Pain, Limited Range of Motion, Other (Bandage in place on right leg. Cooling pack in place. ) Peripheral Pulses: 2+: Radial (L), Radial (R), Dorsalis Pedis (L), Dorsalis Pedis (R) Skin: Warm, Dry, Intact Wound/Incisions: Dressing Dry and Intact Neurological: No New Focal Deficit Psy/Mental Status: Alert, Normal Affect, Normal Mood Consult PN Assessment/Plan POD#: 1 Procedures: Procedures ASSAY OF BLOOD/URIC ACID (05/20/18) ASSAY OF PARATHORMONE (05/20/18) ASSAY OF PROTEIN URINE (05/20/18) ASSAY OF URINE CREATININE (05/20/18) CATARACT SURG W/IOL 1 STAGE (09/15/18) COMPLETE CBC W/AUTO DIFF WBC (05/20/18) EXTREMITY STUDY (08/17/18) RENAL FUNCTION PANEL (05/20/18) URINALYSIS AUTO W/SCOPE (05/20/18) US EXAM ABDO BACK WALL NUNN (05/25/18) VASCULAR STUDY (05/25/18) VITAMIN D 25 HYDROXY (05/20/18) X-RAY EXAM OF KNEE 3 (08/17/18) (1) S/P total knee arthroplasty SNOMED Code(s): 6661807727841, 377209096, 0523233103881 Code(s): Z96.659 - PRESENCE OF UNSPECIFIED ARTIFICIAL KNEE JOINT Priority: High Current Visit: Yes Qualifiers: Laterality: right Qualified Code(s): Z96.651 - Presence of right artificial knee joint (2) Osteoarthritis SNOMED Code(s): 343472827 Code(s): M19.90 - UNSPECIFIED OSTEOARTHRITIS, UNSPECIFIED SITE Priority: High Current Visit: Yes Qualifiers: Osteoarthritis location: knee Osteoarthritis type: primary Laterality: right Qualified Code(s): M17.11 - Unilateral primary osteoarthritis, right knee (3) Positive result for methicillin resistant Staphylococcus aureus (MRSA) screening SNOMED Code(s): 947939137 Code(s): Z22.322 - CARRIER OR SUSPECTED CARRIER OF METHICILLIN RESIS STAPH Current Visit: Yes (4) CKD (chronic kidney disease) stage 3, GFR 30-59 ml/min SNOMED Code(s): 505126312 Code(s): N18.3 - CHRONIC KIDNEY DISEASE, STAGE 3 (MODERATE) Priority: Medium Current Visit: Yes (5) HTN (hypertension) SNOMED Code(s): 41851456 Code(s): I10 - ESSENTIAL (PRIMARY) HYPERTENSION Priority: Medium Current Visit: No Qualifiers: Hypertension type: unspecified Qualified Code(s): I10 - Essential (primary ) hypertension (6) S/P aortic valve replacement with bioprosthetic valve SNOMED Code(s): 2824324867027, 398710014, 971511605, 770758093, 8042136776685 Code(s): Z95.3 - PRESENCE OF XENOGENIC HEART VALVE Priority: Medium Current Visit: No (7) Tricuspid valve regurgitation SNOMED Code(s): 224523997 Code(s): I07.1 - RHEUMATIC TRICUSPID INSUFFICIENCY Priority: Medium Current Visit: No Qualifiers: Cardiac valve disease etiology: etiology unspecified Qualified Code(s): I07.1 - Rheumatic tricuspid insufficiency (8) HLD (hyperlipidemia) SNOMED Code(s): 63168147 Code(s): E78.5 - HYPERLIPIDEMIA, UNSPECIFIED Priority: Low Current Visit : No Qualifiers: Hyperlipidemia type: unspecified Qualified Code(s): E78.5 - Hyperlipidemia , unspecified (9) Type II diabetes mellitus SNOMED Code(s): 90749349 Code(s): E11.9 - TYPE 2 DIABETES MELLITUS WITHOUT COMPLICATIONS Priority: Medium Current Visit: No Qualifiers: Diabetes mellitus cafeteria counter attendant insulin use: unspecified senior care insulin use status Diabetes mellitus complication status: with other specified complication Qualified Code(s): E11.69 - Type 2 diabetes mellitus with other specified complication (10) Hypothyroidism SNOMED Code(s): 92981763 Code(s): E03.9 - HYPOTHYROIDISM, UNSPECIFIED Priority: Low Current Visit : No Qualifiers: Hypothyroidism type: unspecified Qualified Code(s): E03.9 - Hypothyroidism , unspecified (11) Cardiac murmur SNOMED Code(s): 34465779 Code(s): R01.1 - CARDIAC MURMUR, UNSPECIFIED Priority: Low Current Visit : No Problem List Initiated/Reviewed/Updated: Yes My Orders Last 24 Hours: My Active Orders 05/03/19 16:14 Blood Glucose Check, Bedside [RC] QIDACANDBED 05/03/19 17:00 Insulin Lispro [HumaLOG] See Protocol SUBCUT QIDACANDBED Plan: I/P: Acute: S/P right total knee arthroplasty - post-operative day 1 -DVT prophylaxis and pain management per primary care team -PT/OT -IS/RT -Monitor oxygen saturation -Titrate oxygen as needed -Home medications reviewed -Vital signs stable -Monitor labs -Pre-operative Hgb was 14.3; Now 12.2 -Pre-operative GFR was 49; Now 40 -Pre-operative A1C wsa 6.4% -Pre-operative BUN was 24; Now 21 -Pre-operative Creatinine was 1.1; Now 1.3 -Pre-operative 12-lead EKG shows Sinus rhythm at 62 BPM. LVH pattern. Non- specific ST segment abnormalities. S/P open reduction internal fixation of lateral condyle fracture -Management per primary team as above Osteoarthritis of right knee -Pain management per primary care team Chronic: Positive MRSA CKD stage III HTN Bioprosthetic aortic valve replacement on 11/03/15 Moderate tricuspid valve regurgitation HLD Type II DM Hypothyroidism Murmur GERD Plan: Telemetry Contact precautions CM for discharge planning GI prophylaxis Home medications as indicated Other orders as listed above Routine AM labs She is a full code. Her PCP is Veronique Henley PA-C From a hospitalist standpoint Sangeeta is doing well. She has been up ambulating and working with therapies. She has voided and is off of oxygen. Her pain is controlled. She has been utilizing her IS. Labs and vital signs remain grossly stable. We did discuss her elevated creatinine and encouraged oral hydration. PT would like to work with her this afternoon and pending continued progress she will be discharged. She is otherwise cleared for discharge pending primary team and PT/OT agreement. Thank you for allowing us to participate in the care of this patient!!
--- NOTE | 2019-05-04 08:38 | PCM.SURGPN ---
- General Info Date of Service: 05/04/19 POD#: 1 Functional Status: Reports: Pain Controlled, Tolerating Diet, Ambulating, Urinating, Incentive Spirometry - Patient Data Vitals - Most Recent: Last Vital Signs Temp 98.4 F 05/04/19 06:24 Pulse 64 05/04/19 06:24 Resp 20 05/04/19 06:24 BP 123/62 05/04/19 06:24 Pulse Ox 92 L 05/04/19 06:24 Weight - Most Recent: 198 lb 12.8 oz I&O - Last 24 Hours: Intake & Output 05/03/19 05/04/19 05/04/19 22:59 06:59 14:59 Intake Total 145 550 Output Total 600 Balance 145 -50 Lab Results Last 24 Hrs: Laboratory Results - last 24 hr 05/03/19 05/03/19 05/03/19 Range/Units 11:34 17:26 21:31 WBC (3.98-10.04) K/mm3 RBC (3.98-5.22) M/mm3 Hgb (11.2-15.7) gm/dl Hct (34.1-44.9) % MCV (79.4-94.8) fl MCH (25.6-32.2) pg MCHC (32.2-35.5) g/dl RDW Std Deviation (36.4-46.3) fL Plt Count (182-369) K/mm3 MPV (9.4-12.3) fl Sodium (136-145) mEq/L Potassium (3.5-5.1) mEq/L Chloride (98-107) mEq/L Carbon Dioxide (21-32) mEq/L Anion Gap (5-15) BUN (7-18) mg/dL Creatinine (0.55-1.02) mg/dL Est Cr Clr Drug Dosing mL/min Estimated GFR (MDRD) (>60) mL/min BUN/Creatinine Ratio (14-18) Glucose (83-115) mg/dL POC Glucose 107 164 H 139 H (83-110) mg/dL Calcium (8.5-10.1) mg/dL Total Bilirubin (0.2-1.0) mg/dL AST (15-37) U/L ALT (14-59) U/L Alkaline Phosphatase (46-116) U/L Total Protein (6.4-8.2) g/dl Albumin (3.4-5.0) g/dl Globulin gm/dL Albumin/Globulin Ratio (1-2) 05/04/19 05/04/19 05/04/19 Range/Units 05:21 05:21 06:22 WBC 8.33 (3.98-10.04) K/mm3 RBC 4.32 (3.98-5.22) M/mm3 Hgb 12.2 D (11.2-15.7) gm/dl Hct 39.3 (34.1-44.9) % MCV 91.0 (79.4-94.8) fl MCH 28.2 (25.6-32.2) pg MCHC 31.0 L (32.2-35.5) g/dl RDW Std Deviation 46.7 H (36.4-46.3) fL Plt Count 206 (182-369) K/mm3 MPV 9.8 (9.4-12.3) fl Sodium 138 (136-145) mEq/L Potassium 5.0 (3.5-5.1) mEq/L Chloride 106 (98-107) mEq/L Carbon Dioxide 22 (21-32) mEq/L Anion Gap 15.0 (5-15) BUN 21 H (7-18) mg/dL Creatinine 1.3 H (0.55-1.02) mg/dL Est Cr Clr Drug Dosing 34.68 mL/min Estimated GFR (MDRD) 40 (>60) mL/min BUN/Creatinine Ratio 16.2 (14-18) Glucose 129 H (83-115) mg/dL POC Glucose 116 H (83-110) mg/dL Calcium 8.6 (8.5-10.1) mg/dL Total Bilirubin 0.5 (0.2-1.0) mg/dL AST 24 (15-37) U/L ALT 22 (14-59) U/L Alkaline Phosphatase 79 (46-116) U/L Total Protein 6.8 (6.4-8.2) g/dl Albumin 3.4 (3.4-5.0) g/dl Globulin 3.4 gm/dL Albumin/Globulin Ratio 1.0 (1-2) Med Orders - Current: Current Medications Hydrocodone Bitart/Acetaminophen ([place] 325-5 Mg) 1 - 2 tab PO Q4H PRN PRN Reason: Pain Last Admin: 05/04/19 06:26 Dose: 2 tab Amlodipine Besylate (Norvasc) 5 mg PO DAILY [facility] Aspirin (Ecotrin) 325 mg PO BID [facility] Bisacodyl (Dulcolax) 5 mg PO DAILY PRN PRN Reason: Constipation Cholecalciferol (Vitamin D3) 5,000 unit PO DAILY [facility] Famotidine (Pepcid) 20 mg PO Q12H [facility] Last Admin: 05/04/19 06:25 Dose: 20 mg Cefazolin Sodium/Dextrose 2 gm (/ Premix) 50 mls @ 100 mls/hr IV Q8H [facility] Stop: 05/04/19 15:29 Last Admin: 05/04/19 06:27 Dose: 100 mls/hr Insulin Human Lispro (Humalog) 0 unit SUBCUT QIDACANDBED [facility]; Protocol Last Admin: 05/04/19 06:27 Dose: Not Given Levothyroxine Sodium (Synthroid) 88 mcg PO ACBREAKFAST [facility] Last Admin: 05/04/19 06:25 Dose: 88 mcg Magnesium Hydroxide (Milk Of Magnesia) 30 ml PO BID PRN PRN Reason: Constipation Magnesium Oxide (Magnesium Oxide) 400 mg PO DAILY [facility] Metoprolol Succinate (Toprol Xl) 25 mg PO DAILY [facility] Morphine Sulfate (Morphine) 2 mg IVPUSH Q2H PRN PRN Reason: Breakthrough Pain Naloxone HCl (Narcan) 0.1 mg IVPUSH Q5M PRN PRN Reason: Oversedation Ondansetron HCl (Zofran) 4 mg IVPUSH Q6H PRN PRN Reason: Nausea/Vomiting Rosuvastatin Calcium (Crestor) 20 mg PO DAILY [facility] Senna (Senna) 8.6 mg PO BID PRN PRN Reason: Constipation Discontinued Medications Benazepril HCl (Lotensin) 5 mg PO DAILY [facility] Bupivacaine HCl (Sensorcaine-Mpf 0.25%) Confirm Administered Dose 30 ml .ROUTE .STK-MED ONE Stop: 05/03/19 11:43 Last Admin: 05/03/19 14:48 Dose: 30 ml Cefazolin Sodium (Ancef) Confirm Administered Dose 2 gm .ROUTE .STK-MED ONE Stop: 05/03/19 11:43 Cefazolin Sodium (Ancef) Confirm Administered Dose 2 gm .ROUTE .STK-MED ONE Stop: 05/03/19 13:17 Last Admin: 05/03/19 14:47 Dose: 2 gm Morphine Sulfate 8 mg/Epinephrine HCl 0.3 mg/Cefuroxime Sodium 750 mg/Ketorolac Tromethamine 30 mg/Sodium Chloride 27.9 ml 0 mg .XX ASDIRECTED PRN PRN Reason: SCIP Last Admin: 05/03/19 14:49 Dose: 788.3 mg Ephedrine Sulfate (Ephedrine In Ns) Confirm Administered Dose 25 mg .ROUTE .STK- MED ONE Stop: 05/03/19 14:12 Lactated Ringer's (Ringers, Lactated) 1,000 mls @ 125 mls/hr IV ASDIRECTED [facility] Stop: 05/03/19 23:00 Last Admin: 05/03/19 11:34 Dose: 125 mls/hr Vancomycin HCl 1.5 gm/ Sodium (Chloride) 500 mls @ 250 mls/hr IV ONETIME [facility] Last Admin: 05/03/19 12:05 Dose: 250 mls/hr Sodium Chloride (Normal Saline) 1,000 mls @ 125 mls/hr IV ASDIRECTED [facility] Stop: 05/03/19 23:00 Last Admin: 05/03/19 12:45 Dose: 125 mls/hr Lidocaine HCl (Xylocaine-Mpf 1%) Confirm Administered Dose 2 mls @ as directed .ROUTE .STK-MED ONE Stop: 05/03/19 14:15 Iodine (Iodine 2% Mild Tincture) Confirm Administered Dose 30 ml .ROUTE .STK- MED ONE Stop: 05/03/19 11:43 Last Admin: 05/03/19 14:45 Dose: 18 ml Lidocaine/Sodium Bicarbonate (Buffered Lidocaine 1% In Ns 8.4%) 0.25 ml IDERM ONETIME PRN PRN Reason: Prior to IV Start Stop: 05/03/19 18:00 Last Admin: 05/03/19 11:34 Dose: 0.25 ml Midazolam HCl (Versed 1 Mg/Ml) Confirm Administered Dose 2 mg .ROUTE .STK-MED ONE Stop: 05/03/19 13:32 Propofol (Diprivan 20 Ml) Confirm Administered Dose 400 mg .ROUTE .STK-MED ONE Stop: 05/03/19 13:33 Propofol (Diprivan 20 Ml) Confirm Administered Dose 200 mg .ROUTE .STK-MED ONE Stop: 05/03/19 14:35 Ropivacaine (Naropin 0.5%) Confirm Administered Dose 30 ml .ROUTE .STK-MED ONE Stop: 05/03/19 07:45 Sodium Chloride (Saline Flush) 10 ml FLUSH ASDIRECTED PRN PRN Reason: Keep Vein Open Stop: 05/03/19 18:00 Tranexamic Acid (Cyklokapron) Confirm Administered Dose 1,000 mg .ROUTE .STK- MED ONE Stop: 05/03/19 11:43 Last Admin: 05/03/19 14:58 Dose: 1,000 mg Vancomycin HCl (Vancomycin) Confirm Administered Dose 1 gm .ROUTE .STK-MED ONE Stop: 05/03/19 11:43 Last Admin: 05/03/19 14:55 Dose: 1 gm - Exam Wound/Incisions: Dressing Dry and Intact General: Alert, Cooperative, No Acute Distress Lungs: Normal Respiratory Effort Extremities: Other (NVS intact for BLE. Evelyne's negative.) - Problem List Review Problem List Initiated/Reviewed/Updated: Yes - My Orders Last 24 Hours: Active Orders 24 hr Category Date Time Status Blood Glucose Check, Bedside [RC] QIDACANDBED Care 05/03/19 16:14 Active Communication Order [RC] BID Care 05/03/19 15:38 Active Ready for Discharge [RC] PER UNIT ROUTINE Care 05/04/19 08:36 Ordered Vital Signs [RC] Q1H Care 05/03/19 14:06 Inactive [employer] Diet [DIET] Diet 05/03/19 Lunch Active Aspirin [Ecotrin] Med 05/04/19 21:00 Active 325 mg PO BID Cholecalciferol (Vitamin D3) [Vitamin D3] Med 05/04/19 09:00 Active 5,000 unit PO DAILY Insulin Lispro [HumaLOG] Med 05/03/19 17:00 Active See Protocol SUBCUT QIDACANDBED Levothyroxine [Synthroid] Med 05/04/19 06:00 Active 88 mcg PO ACBREAKFAST Magnesium Oxide Med 05/04/19 09:00 Active 400 mg PO DAILY Metoprolol Succinate [Toprol XL] Med 05/04/19 09:00 Active 25 mg PO DAILY Rosuvastatin [Crestor] Med 05/04/19 09:00 Active 20 mg PO DAILY amLODIPine [Norvasc] Med 05/04/19 09:00 Active 5 mg PO DAILY ceFAZolin [Ancef] 2 gm Med 05/03/19 23:00 Active Premix Bag 1 bag IV Q8H Weight bearing status [OM.PC] Routine Oth 05/03/19 16:56 Ordered Medication Orders Hydrocodone Bitart/Acetaminophen ([place] 325-5 Mg) 1 - 2 tab PO Q4H PRN PRN Reason: Pain Last Admin: 05/04/19 06:26 Dose: 2 tab Admin: 05/04/19 01:37 Dose: 2 tab Admin: 05/03/19 21:42 Dose: 2 tab Admin: 05/03/19 17:27 Dose: 2 tab Amlodipine Besylate (Norvasc) 5 mg PO DAILY [facility] Aspirin (Ecotrin) 325 mg PO BID [facility] Bisacodyl (Dulcolax) 5 mg PO DAILY PRN PRN Reason: Constipation Cholecalciferol (Vitamin D3) 5,000 unit PO DAILY [facility] Famotidine (Pepcid) 20 mg PO Q12H [facility] Last Admin: 05/04/19 06:25 Dose: 20 mg Admin: 05/03/19 18:28 Dose: Admin: 05/03/19 17:38 Dose: 20 mg Admin: 05/03/19 17:20 Dose: Cefazolin Sodium/Dextrose 2 gm (/ Premix) 50 mls @ 100 mls/hr IV Q8H [facility] Stop: 05/04/19 15:29 Last Admin: 05/04/19 06:27 Dose: 100 mls/hr Infusion: 05/03/19 22:16 Dose: 100 mls/hr Admin: 05/03/19 22:11 Dose: Admin: 05/03/19 21:46 Dose: 100 mls/hr Insulin Human Lispro (Humalog) 0 unit SUBCUT QIDACANDBED [facility]; Protocol Last Admin: 05/04/19 06:27 Dose: Not Given Admin: 05/03/19 21:45 Dose: Not Given Admin: 05/03/19 17:37 Dose: 1 unit Levothyroxine Sodium (Synthroid) 88 mcg PO ACBREAKFAST [facility] Last Admin: 05/04/19 06:25 Dose: 88 mcg Magnesium Hydroxide (Milk Of Magnesia) 30 ml PO BID PRN PRN Reason: Constipation Magnesium Oxide (Magnesium Oxide) 400 mg PO DAILY [facility] Metoprolol Succinate (Toprol Xl) 25 mg PO DAILY [facility] Morphine Sulfate (Morphine) 2 mg IVPUSH Q2H PRN PRN Reason: Breakthrough Pain Naloxone HCl (Narcan) 0.1 mg IVPUSH Q5M PRN PRN Reason: Oversedation Ondansetron HCl (Zofran) 4 mg IVPUSH Q6H PRN PRN Reason: Nausea/Vomiting Rosuvastatin Calcium (Crestor) 20 mg PO DAILY [facility] Senna (Senna) 8.6 mg PO BID PRN PRN Reason: Constipation - Assessment Assessment (Free Text/Narrative):: POD#1 - right TKA with lateral femoral condyle fracture with intra-op fixation - Plan Plan (Free Text/Narrative):: 1. Hgb 12.2. 2. TTWB RLE with brace in place. The pt may remove brace with rest. 3. Outpatient PT. 4. Further orders per Hospitalist service. The pt's case was discussed with Dr. Alberto. Dr. Alberto also evaluated the pt today.
--- NOTE | 2019-05-04 08:46 | CR ---
Right knee: AP and lateral views of the right knee were obtained. Comparison: Previous right knee radiographic study of 08/17/18. Knee prosthesis is seen. Components are aligned. Two screws are seen above the prosthesis within the distal femur. Underlying bony structures are intact. Soft tissue air is noted from the surgical procedure. Impression: 1. Satisfactory postop radiographic appearance of recently placed right knee prosthesis. Diagnostic code #2 This report was dictated in [place] Standard Time
[2019-05-04] MEDS ORDERED: Cholecalciferol (Vitamin D3) 5,000 UNIT Tab PO SCH (09:00)
[2019-05-04] MEDS ORDERED: Rosuvastatin 10 MG Tab PO SCH (09:00)
[2019-05-04] MEDS ORDERED: Benazepril 10 MG Tab PO SCH (09:00)
[2019-05-04] MEDS ORDERED: Magnesium Oxide 400 MG Tab PO SCH (09:00)
[2019-05-04] MEDS ORDERED: Metoprolol Succinate 25 MG Tab.ER PO SCH (09:00)
[2019-05-04] MEDS ORDERED: amLODIPine 5 MG Tab PO SCH (09:00)
--- NOTE | 2019-05-04 11:09 | PCM48HPAN ---
Post Anesthesia Note - EVALUATION WITHIN 48HRS OF ANESTHETIC Vital Signs in Normal Range: Yes Patient Participated in Evaluation: Yes Respiratory Function Stable: Yes Airway Patent: Yes Cardiovascular Function Stable: Yes Hydration Status Stable: Yes Pain Control Satisfactory: Yes Nausea and Vomiting Control Satisfactory: Yes Mental Status Recovered: Yes Vital Signs: Last Vital Signs Temp 36.7 C 05/04/19 08:46 Pulse 64 05/04/19 08:47 Resp 16 05/04/19 08:46 BP 133/85 05/04/19 08:47 Pulse Ox 93 L 05/04/19 08:46
[2019-05-04] MEDS ORDERED: Docusate Sodium 100 MG Cap PO SCH (11:15)
[2019-05-04] MEDS ORDERED: Aspirin 325 MG Tab.EC PO SCH (21:00)
--- NOTE | 2019-05-06 15:57 | PCM.DCSUM1 ---
Discharge Summary - Hospital Course Brief History: Sangeeta is a 73 yo female who underwent right TKA with Dr. Alberto on 05-03-2019. The procedure was completed under spinal anesthesia with sedation and a post-operative adductor canal block was placed. An intra- operative lateral femoral condyle fracture was noted and treated with screw fixation. The pt tolerated the procedure well and was admitted to the Medical- Surgical Unit. Medical management was provided by the Hospitalist service. The pt's Hospital course was unremarkable. The pt's Hgb on POD#1 was 12.2. On POD#1, 325mg ASA PO BID was initiated for VTE prophylaxis. SCDs and TEDs were also ordered. A Mepilex dressing was placed at the incision site at the time of surgery and remained clean and dry. The pt participated in P.T. and O.T. and progressed well. The pt was allowed to TTWB through the affected lower extremity and used a hinged knee brace that allowed for full motion. On POD#1, the pt was deemed appropriate to discharge to home with her daughter. - Discharge Data Discharge Date: 05/04/19 Discharge Disposition: Home, Self-Care 01 Condition: Good - Referral to Home Health Primary Care Physician: PCP None - Patient Summary/Data Consults: Consultations 05/03/19 07:10 Consult to Physician [CONS] Routine OT Evaluation and Treatment [CONS] Routine PT Evaluation and Treatment [CONS] Routine - Patient Instructions Diet: Usual Diet as Tolerated Activity: Apply Ice, As Tolerated, Elevate Extremity Driving: Do Not Drive Showering/Bathing: May Shower Wound/Incision Care: Keep Operative Site/Wound Site Clean and Dry, Do NOT Change Dressing Notify Provider of: Fever, Increased Pain, Swelling and Redness, Drainage, Nausea and/or Vomiting Other/Special Instructions: Please get up and moving around EVERY HOUR while awake. This helps to prevent blood clots. Please use your walker and have help with mobility as needed. Take a short walk in your home every hour while awake. You may place your foot flat on the floor for balance. Please do not place measureable weight through your limb. Keep the brace in place with mobility. You may remove the brace at night and when resting. Please take 325mg Aspirin TWICE daily. The aspirin is being used for blood clot prevention and not for pain management so please do not miss a dose of the medication. You do not need to use an 81mg aspirin daily while you are using the 325mg aspirins. You will resume use of 81mg aspirin daily when the 325mg aspirin course is completed. You could use a medication like Pepcid or Tagamet and a medication like Prilosec or Nexium to protect your stomach while you are using the aspirin. At home, please complete the exercises that you learned during the Hospital stay. Schedule for physical therapy. Use the pain medication as needed. The medication may cause drowsiness and constipation. Contact your primary care provider for instructions if you are constipated. You may use a stool softener like docusate sodium or Colace 100mg twice daily and/or a laxative like Miralax daily for constipation. Increase your water and fiber intake while you are using the pain medication. Discontinue use of the pain medication as soon as able. Please do not use other medications that may cause drowsiness (other pain medications, anxiety pills, cold medications, sleeping pills, etc) while using the prescription pain medication. Do not use alcohol while using the pain medication. You may use acetaminophen or Tylenol for pain management, however, please ensure you are not using over 4000 mg or 4 grams of acetaminophen per day from all sources. Your pain medication has 325mg of acetaminophen per tablet. At this time, please do not use ibuprofen (Motrin, Advil) or naproxen (Aleve) for pain management as you are using the aspirin. When the aspirin course is completed in 4 to 6 weeks, you could use ibuprofen or naproxen for pain management (if this is allowed by your primary care provider). Wear the SUDHIR hose during the day and you may remove these at night. Elevate the limb to decrease swelling. Place ice to the area often. Place a towel between your skin and the blue pad. Use the incentive spirometer often. Take deep breaths throughout the day. Please keep the dressing in place until follow-up. Notify the Clinic if the dressing becomes saturated. Increase your protein intake while you are healing. Please closely monitor your blood sugars and notify your primary care provider with abnormal values. Elevated blood sugars increases the risk of infection. You may resume use of vitamin E in 2 weeks. Call the Clinic with questions or concerns - [phone]. - Discharge Plan *PRESCRIPTION DRUG MONITORING PROGRAM REVIEWED*: No *COPY OF PRESCRIPTION DRUG MONITORING REPORT IN PATIENT RUTH: No Prescriptions/Med Rec: Acetaminophen/HYDROcodone [[place] 325-5 MG] 1 - 2 tab PO Q4H PRN #60 tablet PRN Reason: Pain Aspirin [Ecotrin EC] 325 mg PO BID #60 tab.ec Docusate Sodium [Colace] 100 mg PO BID 30 Days cap Home Medications: Home Meds Levothyroxine Sodium 88 mcg PO DAILY 07/20/18 [History] Linagliptin [Tradjenta] 5 mg PO DAILY 07/20/18 [History] Metoprolol Succinate 25 mg PO DAILY 07/20/18 [History] amLODIPine Besylate [Amlodipine Besylate] 10 mg PO DAILY 07/20/18 [History] atorvaSTATin Calcium [Atorvastatin Calcium] 80 mg PO DAILY 07/20/18 [History] Benazepril [Lotensin] 5 mg PO DAILY 04/28/19 [History] Cholecalciferol (Vitamin D3) [Vitamin D3] 5,000 unit PO DAILY 04/28/19 [History] Magnesium Oxide [Magnesium] 400 mg PO DAILY 04/28/19 [History] Acetaminophen/HYDROcodone [[place] 325-5 MG] 1 - 2 tab PO Q4H PRN #60 tablet 05/04 [Rx] Aspirin [Ecotrin EC] 325 mg PO BID #60 tab.ec 05/04/19 [Rx] Bisacodyl [Dulcolax] 5 mg PO DAILY PRN tablet 05/04/19 [Rx] Docusate Sodium [Colace] 100 mg PO BID 30 Days cap 05/04/19 [Rx] Famotidine [Pepcid] 20 mg PO Q12H tablet 05/04/19 [Rx] Sennosides [Senna] 8.6 mg PO BID PRN tablet 05/04/19 [Rx] Patient Handouts: Acetaminophen; Hydrocodone tablets or capsules, Total Knee Replacement, [id number] Referrals: Char Gil, FELICIA [Physician [employer]er] - - Discharge Summary/Plan Comment DC Time >30 min.: No - Patient Data Vitals - Most Recent: Last Vital Signs Temp 98.8 F 05/04/19 14:34 Pulse 63 05/04/19 14:34 Resp 16 05/04/19 14:34 BP 143/95 H 05/04/19 14:34 Pulse Ox 93 L 05/04/19 14:34 Weight - Most Recent: 198 lb 12.8 oz Med Orders - Current: Current Medications Discontinued Medications Hydrocodone Bitart/Acetaminophen ([place] 325-5 Mg) 1 - 2 tab PO Q4H PRN PRN Reason: Pain Last Admin: 05/04/19 17:37 Dose: 2 tab Amlodipine Besylate (Norvasc) 5 mg PO DAILY [facility] Last Admin: 05/04/19 08:47 Dose: 5 mg Aspirin (Ecotrin) 325 mg PO BID [facility] Benazepril HCl (Lotensin) 5 mg PO DAILY [facility] Bisacodyl (Dulcolax) 5 mg PO DAILY PRN PRN Reason: Constipation Bupivacaine HCl (Sensorcaine-Mpf 0.25%) Confirm Administered Dose 30 ml .ROUTE .STK-MED ONE Stop: 05/03/19 11:43 Last Admin: 05/03/19 14:48 Dose: 30 ml Cefazolin Sodium (Ancef) Confirm Administered Dose 2 gm .ROUTE .STK-MED ONE Stop: 05/03/19 11:43 Cefazolin Sodium (Ancef) Confirm Administered Dose 2 gm .ROUTE .STK-MED ONE Stop: 05/03/19 13:17 Last Admin: 05/03/19 14:47 Dose: 2 gm Cholecalciferol (Vitamin D3) 5,000 unit PO DAILY [facility] Last Admin: 05/04/19 08:48 Dose: 5,000 unit Morphine Sulfate 8 mg/Epinephrine HCl 0.3 mg/Cefuroxime Sodium 750 mg/Ketorolac Tromethamine 30 mg/Sodium Chloride 27.9 ml 0 mg .XX ASDIRECTED PRN PRN Reason: SCIP Last Admin: 05/03/19 14:49 Dose: 788.3 mg Docusate Sodium (Colace) 100 mg PO BID [facility] Last Admin: 05/04/19 12:31 Dose: 100 mg Ephedrine Sulfate (Ephedrine In Ns) Confirm Administered Dose 25 mg .ROUTE .STK- MED ONE Stop: 05/03/19 14:12 Famotidine (Pepcid) 20 mg PO Q12H [facility] Last Admin: 05/04/19 06:25 Dose: 20 mg Lactated Ringer's (Ringers, Lactated) 1,000 mls @ 125 mls/hr IV ASDIRECTED [facility] Stop: 05/03/19 23:00 Last Admin: 05/03/19 11:34 Dose: 125 mls/hr Vancomycin HCl 1.5 gm/ Sodium (Chloride) 500 mls @ 250 mls/hr IV ONETIME [facility] Last Admin: 05/03/19 12:05 Dose: 250 mls/hr Sodium Chloride (Normal Saline) 1,000 mls @ 125 mls/hr IV ASDIRECTED [facility] Stop: 05/03/19 23:00 Last Admin: 05/03/19 12:45 Dose: 125 mls/hr Lidocaine HCl (Xylocaine-Mpf 1%) Confirm Administered Dose 2 mls @ as directed .ROUTE .STK-MED ONE Stop: 05/03/19 14:15 Cefazolin Sodium/Dextrose 2 gm (/ Premix) 50 mls @ 100 mls/hr IV Q8H [facility] Stop: 05/04/19 15:29 Last Admin: 05/04/19 14:25 Dose: 100 mls/hr Insulin Human Lispro (Humalog) 0 unit SUBCUT QIDACANDBED [facility]; Protocol Last Admin: 05/04/19 19:01 Dose: Not Given Iodine (Iodine 2% Mild Tincture) Confirm Administered Dose 30 ml .ROUTE .STK- MED ONE Stop: 05/03/19 11:43 Last Admin: 05/03/19 14:45 Dose: 18 ml Levothyroxine Sodium (Synthroid) 88 mcg PO ACBREAKFAST [facility] Last Admin: 05/04/19 06:25 Dose: 88 mcg Lidocaine/Sodium Bicarbonate (Buffered Lidocaine 1% In Ns 8.4%) 0.25 ml IDERM ONETIME PRN PRN Reason: Prior to IV Start Stop: 05/03/19 18:00 Last Admin: 05/03/19 11:34 Dose: 0.25 ml Magnesium Hydroxide (Milk Of Magnesia) 30 ml PO BID PRN PRN Reason: Constipation Magnesium Oxide (Magnesium Oxide) 400 mg PO DAILY [facility] Last Admin: 05/04/19 08:47 Dose: 400 mg Metoprolol Succinate (Toprol Xl) 25 mg PO DAILY [facility] Last Admin: 05/04/19 08:47 Dose: 25 mg Midazolam HCl (Versed 1 Mg/Ml) Confirm Administered Dose 2 mg .ROUTE .STK-MED ONE Stop: 05/03/19 13:32 Morphine Sulfate (Morphine) 2 mg IVPUSH Q2H PRN PRN Reason: Breakthrough Pain Naloxone HCl (Narcan) 0.1 mg IVPUSH Q5M PRN PRN Reason: Oversedation Ondansetron HCl (Zofran) 4 mg IVPUSH Q6H PRN PRN Reason: Nausea/Vomiting Propofol (Diprivan 20 Ml) Confirm Administered Dose 400 mg .ROUTE .STK-MED ONE Stop: 05/03/19 13:33 Propofol (Diprivan 20 Ml) Confirm Administered Dose 200 mg .ROUTE .STK-MED ONE Stop: 05/03/19 14:35 Ropivacaine (Naropin 0.5%) Confirm Administered Dose 30 ml .ROUTE .STK-MED ONE Stop: 05/03/19 07:45 Rosuvastatin Calcium (Crestor) 20 mg PO DAILY [facility] Last Admin: 05/04/19 08:47 Dose: 20 mg Senna (Senna) 8.6 mg PO BID PRN PRN Reason: Constipation Sodium Chloride (Saline Flush) 10 ml FLUSH ASDIRECTED PRN PRN Reason: Keep Vein Open Stop: 05/03/19 18:00 Tranexamic Acid (Cyklokapron) Confirm Administered Dose 1,000 mg .ROUTE .STK- MED ONE Stop: 05/03/19 11:43 Last Admin: 05/03/19 14:58 Dose: 1,000 mg Vancomycin HCl (Vancomycin) Confirm Administered Dose 1 gm .ROUTE .STK-MED ONE Stop: 05/03/19 11:43 Last Admin: 05/03/19 14:55 Dose: 1 gm
--- NOTE | 2019-05-07 13:40 | PCM.OPNOTE ---
- General Post-Op/Procedure Note Date of Surgery/Procedure: 05/03/19 Operative Procedure(s): right total knee arthroplasty with open reduction internal fixation of right lateral femoral condyle Pre Op Diagnosis: right knee osteoarthrosis Post-Op Diagnosis: same with intraop right lateral femoral condyle fracture Anesthesia Technique: Local, MAC, Spinal Primary Surgeon: Juan Jose Alberto Anesthesia Provider: Alfie Bray Chipper Feeder: Char Gil Chipper Feeder: Gabby Ghotra EBL in mLs: 10 Complications: None Condition: Good Free Text/Narrative:: 4 femur 3 tibia 9mm 32x10
--- NOTE | 2019-05-07 14:44 | OR ---
DATE OF OPERATION: 05/03/2019 SURGEON: Juan Jose Alberto MD OPERATION PERFORMED: Right total knee arthroplasty with open reduction and internal fixation of right lateral femoral condyle. PREOPERATIVE DIAGNOSIS: Right knee osteoarthrosis. POSTOPERATIVE DIAGNOSIS: Right knee osteoarthrosis with intraoperative right lateral femoral condyle fracture. ANESTHESIA: Local MAC with spinal. ANESTHESIA PROVIDER: Alfie Bray CRNA. ASSISTANTS: Char Gil PA-C; and Gabby Ghotra LPN. ESTIMATED BLOOD LOSS: 10 mL. COMPLICATIONS: Intraoperative lateral femoral condyle fracture. CONDITION: Stable. IMPLANTS: 1. [place] size 4 cemented PS femur. 2. [place] size 3 Spencer tibial baseplate. 3. [place] size 3, 9 mm PS X3 polyethylene. 4. [place] size 32 x 10 mm cemented asymmetric patella. 5. Two 4.0 cannulated screws with washers. DESCRIPTION OF PROCEDURE: The patient was identified in the preoperative holding area. Proper site was marked and identified by the surgeon. The patient was taken back to the operative theater, where after adequate anesthesia, the patient's right lower extremity had a nonsterile tourniquet applied and it was then sterilely prepped and draped in the usual sterile fashion. OR-wide time-out was performed. The patient received 2 g IV Ancef. At this time, right lower extremity was exsanguinated and tourniquet was insufflated to 250 mmHg. Standard medial parapatellar incision was made. This was taken down to the quadriceps tendon and patellar tendon and medial parapatellar arthrotomy was completed. Deep fibers of the MCL were raised. Anterior fat pad was resected. Attention was turned to the patella. Patella measured a 23 and was resected to 13 for a 32 x 10 mm patella. Drill holes were then drilled. The patient's bone was noted to be significantly soft at this time. Drill hole was then placed in the distal femur, and the distal femoral cutting guide was then placed down the canal and 8 mm resected off the distal femur. Sizing guide was placed and drill holes were drilled for the epicondylar axis. A cutting block was then placed and anterior posterior chamfer cuts were then completed and found to be adequate. The patient was noted to again have osteoporotic bone. The box cut was then completed and found to be adequate. Attention was turned to the tibia. Posterior and mediolateral retractors were then placed. At this time, the drill hole was placed in the proximal femur and the T-angle guide with the intramedullary tibial cutting guide was then placed down the canal. This was then pinned into place for 9 mm of the less affected lateral side. Tibial resection was then completed out. Circumferential removal of the medial and lateral meniscus as well as any osteophytes was undertaken at this time. Trial implant was then placed on the tibia and then on the femur, and a 9-mm insert was then trialed. It was brought through range of motion and it was found to be stable throughout range of motion. Patella was tracking centrally. At this time, as I was taking the trial components out, there was noted to be a large crack on the lateral femoral condyle with displacement. At this time, a point- to-point reduction clamp was then utilized to reduce the femur and two 4.0 cannulated screws, stainless steel, were then placed across the fracture site. This was found to have adequate reduction at this time. At this time, secondary to the fracture, it did take increased time and complexity compared to a regular total knee arthroplasty. Cement was mixed on the back table once the lateral condyle fracture was adequately reduced and fixated. At this time, all cut surfaces were irrigated with pulse lavage irrigation with Ancef and then completely dried. The size 3 tibia was then cemented into place. Excess cement was removed. A size 4 femur was then cemented into place. A 9 mm PS X3 polyethylene was then placed, and the patient's knee was brought into full extension. All excess cement was removed. The 32 x 10 mm patella was then cemented into place. At this time, 1 L dilute Betadine solution was irrigated through the knee along with 3 L of pulse lavage irrigation with Ancef. Topical tranexamic acid and vancomycin powder were applied as well as a periarticular injection. A #2 barbed suture was used for closure of the medial parapatellar arthrotomy. 2-0 Vicryl was used subcutaneously. Prineo was used for the skin. The patient tolerated the procedure well and was placed in a hinged knee brace and sent to the PACU in stable condition. MMPAOLA /[id number]
== END 2019-05-04 18:03 | disposition home or self-care (01) | DRG 470 ==
LOC: JD.MS 05-03 07:15 → JD.SDS 05-03 10:52 → UNDOADMIN 05-03 10:53 → JD.MS 05-03 10:53 → EDSTATUS 05-03 12:45 → UNDODISIN 05-04 18:03
PROVIDERS: ADMIT Orthopaedic Surgery; ATTEND Orthopaedic Surgery
PROC: 0QSB04Z Reposition Right Lower Femur with Internal Fixation Device, Open Approach (ICD-10-PCS; principal; 2019-05-03)
PROC: 0SRC0J9 Replacement of Right Knee Joint with Synthetic Substitute, Cemented, Open Approach (ICD-10-PCS; principal; 2019-05-03)
PROC: 3E0T3BZ Introduction of Anesthetic Agent into Peripheral Nerves and Plexi, Percutaneous Approach (ICD-10-PCS; 2019-05-03)
DX: M17.11 Unilateral primary osteoarthritis, right knee (principal); M96.89 Other intraoperative and postprocedural complications and disorders of the musculoskeletal system; M96.661 Fracture of femur following insertion of orthopedic implant, joint prosthesis, or bone plate, right leg; M54.16 Radiculopathy, lumbar region; I25.10 Atherosclerotic heart disease of native coronary artery without angina pectoris; E11.22 Type 2 diabetes mellitus with diabetic chronic kidney disease; I12.9 Hypertensive chronic kidney disease with stage 1 through stage 4 chronic kidney disease, or unspecified chronic kidney disease; N18.3 Chronic kidney disease, stage 3 (moderate); E78.5 Hyperlipidemia, unspecified; E03.9 Hypothyroidism, unspecified; I48.91 Unspecified atrial fibrillation; R01.1 Cardiac murmur, unspecified; I07.1 Rheumatic tricuspid insufficiency; G89.18 Other acute postprocedural pain; M25.761 Osteophyte, right knee; Z79.899 Other long term (current) drug therapy; Z79.890 Hormone replacement therapy; Z96.652 Presence of left artificial knee joint; Z95.3 Presence of xenogenic heart valve; Z79.84 Long term (current) use of oral hypoglycemic drugs; Z22.322 Carrier or suspected carrier of Methicillin resistant Staphylococcus aureus; Z79.82 Long term (current) use of aspirin; Y83.8 Other surgical procedures as the cause of abnormal reaction of the patient, or of later complication, without mention of misadventure at the time of the procedure; M81.0 Age-related osteoporosis without current pathological fracture
CPT/HCPCS: 01402; 36415; 64450; 73560-26-RT; 73560-RT; 80053; 82962; 85027; 87641; 97110-GP; 97116-GP; 97161-GP; 97165-GO; 97535-GO; A9270-GY; C1713; C1769; C1776; J0171; J0690; J0697; J1815-GY; J1885; J2001; J2250; J2270; J2704; J2795; J3370; J3490; J7030; J7040; J7050; J7120

== ENCOUNTER 2023-01-17 06:41 | Emergency (ER) | payer MEDICARE, OTHER ==
[2023-01-17] MEDS ORDERED: Orphenadrine 100 MG Tab.ER PO STA (07:19)
[2023-01-17 08:06] LABS: BASOPHILS ABSOLUTE AUTO 0.03 K/mm3 (0.01-0.08); BASOPHILS PERCENT AUTO 0.3 % (0.1-1.2); EOSINOPHILS ABSOLUTE AUTO 0.12 K/mm3 (0.04-0.36); EOSINOPHILS PERCENT AUTO 1.4 (0.7-5.8); HEMATOCRIT 45.6 % (34.1-44.9); HEMOGLOBIN 14.6 gm/dl (11.2-15.7); IMMATURE GRAN ABSOLUTE AUTO 0.02 K/mm3 (0.00-0.10); IMMATURE GRAN PERCENT AUTO 0.2 % (<=1.0); LYMPHOCYTES ABSOLUTE AUTO 1.74 K/mm3 (1.18-3.74); MEAN CORPUSCULAR HEMOGLOBIN 28.9 pg (25.6-32.2); MEAN PLATELET VOLUME 9.9 fl (9.4-12.3); MONOCYTES ABSOLUTE AUTO 0.92 K/mm3 (0.24-0.36); MONOCYTES PERCENT AUTO 10.6 % (4.7-12.5); NEUTROPHILS ABSOLUTE AUTO 5.87 K/mm3 (1.56-6.13); NEUTROPHILS PERCENT AUTO 67.5 % (34.0-71.1); RED BLOOD CELL COUNT 5.05 M/mm3 (3.98-5.22)
[2023-01-17 08:08] LABS: MEAN CORPUSCULAR VOLUME 90.3 fl (79.4-94.8); PLATELET COUNT,PLT 224 K/mm3 (182-369)
[2023-01-17 08:11] LABS: PROTHROMBIN TIME 9.9 SECONDS (9.7-12.0)
[2023-01-17 08:13] LABS: PTT,PARTIAL THROMBOPLSTIN TIME 27.3 SECONDS (21.7-31.4)
[2023-01-17 08:16] LABS: INR < 0.93
[2023-01-17 08:25] LABS: D-DIMER QUANTITATIVE 0.71 mg/L (0.19-0.50)
[2023-01-17 08:30] LABS: ANION GAP 15.6 (5-15); BILIRUBIN TOTAL 0.8 mg/dL (0.2-1.0); BUN/CREATININE RATIO 12.9 (14-18); CALCIUM 9.3 mg/dL (8.5-10.1); CREATININE 1.4 mg/dL (0.55-1.02); EST CRCL DRUG DOSING (CG) 29.06 mL/min; MAGNESIUM 1.9 mg/dL (1.8-2.4); POTASSIUM,K 4.6 mEq/L (3.5-5.1)
== END 2023-01-17 09:50 | disposition home or self-care (01) ==
LOC: JD.ED 06:41
DX: R07.82 Intercostal pain (principal); E11.65 Type 2 diabetes mellitus with hyperglycemia; I12.9 Hypertensive chronic kidney disease with stage 1 through stage 4 chronic kidney disease, or unspecified chronic kidney disease; N18.9 Chronic kidney disease, unspecified; K21.9 Gastro-esophageal reflux disease without esophagitis; E78.00 Pure hypercholesterolemia, unspecified; E03.9 Hypothyroidism, unspecified; Z79.899 Other long term (current) drug therapy; Z79.82 Long term (current) use of aspirin
CPT/HCPCS: 36415; 71046; 80053; 83735; 83880; 84484; 85025; 85379; 85610; 85730; 93005; 99285; A9270; 93010; 99283

== ENCOUNTER 2025-02-22 14:39 | Inpatient (IN) | payer MEDICARE, OTHER ==
[2025-02-22 16:04] LABS: BASOPHILS ABSOLUTE AUTO 0.1 K/mm3 (0.0-0.2); BASOPHILS PERCENT AUTO 0.7 % (0.0-1.0); EOSINOPHILS ABSOLUTE AUTO 0.1 K/mm3 (0.0-0.4); EOSINOPHILS PERCENT AUTO 1.9 % (0.0-6.0); IMMATURE GRAN ABSOLUTE AUTO 0.01 K/mm3 (0.00-0.05); IMMATURE GRAN PERCENT AUTO 0.1 % (0.0-0.4); LYMPHOCYTES ABSOLUTE AUTO 1.8 K/mm3 (1.0-4.8); LYMPHOCYTES PERCENT AUTO 23.7 % (24.0-44.0); MEAN PLATELET VOLUME 9.3 fl (9.4-12.3); MONOCYTES ABSOLUTE AUTO 0.7 K/mm3 (0.0-0.8); MONOCYTES PERCENT AUTO 9.3 % (0.0-8.0); NEUTROPHILS ABSOLUTE AUTO 4.8 K/mm3 (1.8-7.7); NEUTROPHILS PERCENT AUTO 64.3 % (41.0-71.0); NRBC ABSOLUTE 0.00 (0.00-0.02); NRBC PERCENT 0.0 % (0.0-0.2); PLATELET COUNT,PLT 260 K/mm3 (150-400); RED BLOOD CELL COUNT 4.44 M/mm3 (4.10-5.30); WHITE BLOOD CELL COUNT,WBC 7.50 K/mm3 (3.9-11.3)
[2025-02-22 16:28] LABS: A/G RATIO 1.1 (1-2); ALANINE AMINOTRANSFERASE,ALT 76.0 U/L (14-59); ASPARTATE AMNIOTRANSFERASE,AST 36.0 U/L (15-37); BILIRUBIN TOTAL 0.8 mg/dL (0.2-1.0); BLOOD UREA NITROGEN,BUN 23.0 mg/dL (7-18); CARBON DIOXIDE,CO2 25.0 mEq/L (21-32); CHLORIDE,CL 107.0 mEq/L (98-107); CREATININE 1.3 mg/dL (0.55-1.02); EST CRCL DRUG DOSING (CG) 32.85 mL/min; ESTIMATED GFR 42.0 mL/min (>60); GLUCOSE RANDOM 120.0 mg/dL (70-99); POTASSIUM,K 4.5 mEq/L (3.5-5.1); PROTEIN TOTAL,TP 7.5 g/dl (6.4-8.2); SODIUM,NA 141.0 mEq/L (136-145); TROPONIN I HIGH SENSITIVITY 10.0 pg/mL (<=51)
[2025-02-22] MEDS: Diltiazem 25 MG/5 ML SDV IVPUSH ONE (16:49)
[2025-02-22] MEDS: Sodium Chloride 0.9% 10 ML Syringe FLUSH PRN (16:53)
[2025-02-22 19:06] LABS: TSH 3.73 uIU/mL (0.358-3.74)
[2025-02-22] MEDS: Furosemide 40 MG/4 ML VIAL IVPUSH ONE (19:51)
[2025-02-22 21:30] LABS: APPEARANCE,URINE CLEAR (Clear); GLUCOSE,URINE NEGATIVE (Negative); OCCULT BLOOD,URINE NEGATIVE (Negative)
[2025-02-22 21:37] LABS: EPITHELIAL CELLS,URINE 0-5 /hpf (0-5)
[2025-02-23 04:38] LABS: BASOPHILS ABSOLUTE AUTO 0.1 K/mm3 (0.0-0.2); BASOPHILS PERCENT AUTO 0.8 % (0.0-1.0); EOSINOPHILS ABSOLUTE AUTO 0.2 K/mm3 (0.0-0.4); EOSINOPHILS PERCENT AUTO 2.6 % (0.0-6.0); IMMATURE GRAN ABSOLUTE AUTO 0.01 K/mm3 (0.00-0.05); IMMATURE GRAN PERCENT AUTO 0.2 % (0.0-0.4); LYMPHOCYTES ABSOLUTE AUTO 1.4 K/mm3 (1.0-4.8); LYMPHOCYTES PERCENT AUTO 21.2 % (24.0-44.0); MEAN PLATELET VOLUME 9.7 fl (9.4-12.3); MONOCYTES ABSOLUTE AUTO 0.7 K/mm3 (0.0-0.8); MONOCYTES PERCENT AUTO 10.5 % (0.0-8.0); NEUTROPHILS ABSOLUTE AUTO 4.3 K/mm3 (1.8-7.7); NEUTROPHILS PERCENT AUTO 64.7 % (41.0-71.0); NRBC ABSOLUTE 0.00 (0.00-0.02); NRBC PERCENT 0.0 % (0.0-0.2); PLATELET COUNT,PLT 253 K/mm3 (150-400); RED BLOOD CELL COUNT 4.47 M/mm3 (4.10-5.30); WHITE BLOOD CELL COUNT,WBC 6.57 K/mm3 (3.9-11.3)
[2025-02-23 05:14] LABS: A/G RATIO 1.1 (1-2); ALANINE AMINOTRANSFERASE,ALT 66.0 U/L (14-59); ASPARTATE AMNIOTRANSFERASE,AST 27.0 U/L (15-37); BILIRUBIN TOTAL 0.8 mg/dL (0.2-1.0); BLOOD UREA NITROGEN,BUN 22.0 mg/dL (7-18); CARBON DIOXIDE,CO2 29.0 mEq/L (21-32); CHLORIDE,CL 106.0 mEq/L (98-107); CREATININE 1.3 mg/dL (0.55-1.02); EST CRCL DRUG DOSING (CG) 32.85 mL/min; ESTIMATED GFR 42.0 mL/min (>60); GLUCOSE RANDOM 133.0 mg/dL (70-99); POTASSIUM,K 4.2 mEq/L (3.5-5.1); PROTEIN TOTAL,TP 7.2 g/dl (6.4-8.2); SODIUM,NA 142.0 mEq/L (136-145)
[2025-02-23] MEDS ORDERED: Ondansetron 4 MG/2 ML SDV IV PRN (08:23)
[2025-02-23] MEDS: Furosemide 40 MG/4 ML VIAL IVPUSH ONE (09:29)
[2025-02-23] MEDS: Insulin Lispro 100 Unit/ML 3 ML KwikPen SUBCUT SCH (17:41)
[2025-02-24 04:30] LABS: BASOPHILS ABSOLUTE AUTO 0.0 K/mm3 (0.0-0.2); BASOPHILS PERCENT AUTO 0.5 % (0.0-1.0); EOSINOPHILS ABSOLUTE AUTO 0.3 K/mm3 (0.0-0.4); EOSINOPHILS PERCENT AUTO 3.0 % (0.0-6.0); IMMATURE GRAN ABSOLUTE AUTO 0.02 K/mm3 (0.00-0.05); IMMATURE GRAN PERCENT AUTO 0.2 % (0.0-0.4); LYMPHOCYTES ABSOLUTE AUTO 2.0 K/mm3 (1.0-4.8); LYMPHOCYTES PERCENT AUTO 23.6 % (24.0-44.0); MEAN PLATELET VOLUME 9.7 fl (9.4-12.3); MONOCYTES ABSOLUTE AUTO 0.9 K/mm3 (0.0-0.8); MONOCYTES PERCENT AUTO 10.4 % (0.0-8.0); NEUTROPHILS ABSOLUTE AUTO 5.3 K/mm3 (1.8-7.7); NEUTROPHILS PERCENT AUTO 62.3 % (41.0-71.0); NRBC ABSOLUTE 0.00 (0.00-0.02); NRBC PERCENT 0.0 % (0.0-0.2); PLATELET COUNT,PLT 260 K/mm3 (150-400); RED BLOOD CELL COUNT 4.59 M/mm3 (4.10-5.30); WHITE BLOOD CELL COUNT,WBC 8.43 K/mm3 (3.9-11.3)
[2025-02-24 04:55] LABS: A/G RATIO 1.0 (1-2); ALANINE AMINOTRANSFERASE,ALT 58.0 U/L (14-59); ASPARTATE AMNIOTRANSFERASE,AST 24.0 U/L (15-37); BILIRUBIN TOTAL 0.7 mg/dL (0.2-1.0); BLOOD UREA NITROGEN,BUN 30.0 mg/dL (7-18); CARBON DIOXIDE,CO2 28.0 mEq/L (21-32); CHLORIDE,CL 104.0 mEq/L (98-107); CREATININE 1.7 mg/dL (0.55-1.02); EST CRCL DRUG DOSING (CG) 25.12 mL/min; ESTIMATED GFR 30.0 mL/min (>60); GLUCOSE RANDOM 166.0 mg/dL (70-99); POTASSIUM,K 4.4 mEq/L (3.5-5.1); PROTEIN TOTAL,TP 7.1 g/dl (6.4-8.2); SODIUM,NA 140.0 mEq/L (136-145)
== END 2025-02-24 12:50 | disposition home or self-care (01) | DRG 291 ==
LOC: JD.ED 14:39 → JD.MS 18:31
PROVIDERS: ADMIT Family Medicine; ATTEND Family Medicine
DX: I13.0 Hypertensive heart and chronic kidney disease with heart failure and stage 1 through stage 4 chronic kidney disease, or unspecified chronic kidney disease (principal); I50.31 Acute diastolic (congestive) heart failure; I48.91 Unspecified atrial fibrillation; Z66 Do not resuscitate; K21.9 Gastro-esophageal reflux disease without esophagitis; N18.9 Chronic kidney disease, unspecified; E03.9 Hypothyroidism, unspecified; E11.22 Type 2 diabetes mellitus with diabetic chronic kidney disease; I07.1 Rheumatic tricuspid insufficiency; Z79.890 Hormone replacement therapy; I34.0 Nonrheumatic mitral (valve) insufficiency; H54.7 Unspecified visual loss; E78.00 Pure hypercholesterolemia, unspecified; M19.90 Unspecified osteoarthritis, unspecified site; Z96.653 Presence of artificial knee joint, bilateral; Z98.49 Cataract extraction status, unspecified eye; Z95.3 Presence of xenogenic heart valve; Z79.899 Other long term (current) drug therapy; Z79.82 Long term (current) use of aspirin; Z98.890 Other specified postprocedural states
CPT/HCPCS: 36415; 71046; 80053; 83735; 83880; 84443; 84484; 85025; 93005; 96374; 99285; J1163; 81001; 82947; 93306; 97112-GP; 97116-GP; 97161-GP; 97165-GO; 97535-GO; A9270-GY; J1938